=== PATIENT | female | born 1925 | race Caucasian/White ===

== ENCOUNTER 2016-05-23 10:48 | Emergency (ER) | payer MEDICARE, OTHER ==
[~2016-05-23] VITALS: Ht 157.5 cm; Wt 52.9 kg
[~2016-05-23 10:48] MED LIST: LSN5 PO; TIMO0.2534 OPB
[2016-05-23 10:52] VITALS: TEMP 37.2; Ht 157.5 cm; Wt 52.9 kg
[2016-05-23] MEDS ORDERED: IPRATROPIUM BROMIDE NEB SOLN 0.02% 2.5 ML VIAL INH STA (11:08)
[2016-05-23] MEDS ORDERED: LEVALBUTEROL 1.25MG/0.5ML NEB INH STA (11:08)
[2016-05-23] MEDS ORDERED: SODIUM CHLORIDE 0.9% 1000ML 500 ML IV STA (11:08)
[2016-05-23 11:24] VITALS: O2SAT 94
[2016-05-23 11:30] VITALS: PULSE 84; O2SAT 96
[2016-05-23 11:50] LABS: BASO % 0.1 %; BASO ABS # 0.01 K/uL (0-0.2); COMPLETE YES; EOS % 0.1 %; IG% 0.3 %; LYMPH % 5.6 %; LYMPH ABS # 0.56 K/uL (1.2-3.4); MEAN CELL VOLUME 89.5 fL (80-100); MEAN CORPUSCULAR HGB CONC 33.5 g/dl (32-36); MEAN PLATELET VOLUME 8.1 fL (7.4-10.4); MONO % 4.6 %; NEUT % 89.3 %; PLATELET COUNT 340 K/uL (130-400); RED BLOOD COUNT 4.47 M/uL (4.2-5.4); WHITE BLOOD COUNT 9.98 K/uL (4.8-10.8)
[2016-05-23] MEDS ORDERED: GUAISYP4 PO (11:53)
[2016-05-23] MEDS ORDERED: AZIT250T PO (11:53)
[2016-05-23] MEDS ORDERED: PRED10TA PO (11:54)
[2016-05-23 12:03] LABS: BLOOD UREA NITROGEN 17 mg/dl (7-18); BUN/CREATININE RATIO 25.1 (10-20); CALCIUM 8.9 mg/dl (8.5-10.1); CARBON DIOXIDE 26 mmol/L (21-32); CHLORIDE 103 mmol/L (98-107); CREATININE 0.69 mg/dl (0.60-1.20); GLUCOSE 127 mg/dl (70-99); POTASSIUM 4.2 mmol/L (3.5-5.1); SODIUM 138 mmol/L (136-145)
[2016-05-23 12:06] LABS: PARTIAL THROMBOPLASTIN RATIO 1.1; PROTHROMBIN TIME (PATIENT) 10.9 SECONDS (9.0-12.0)
--- NOTE | 2016-05-23 12:29 | DIAGNOSTIC IMAGING REPORT ---
CHEST ONE VIEW PORTABLE CLINICAL HISTORY: EVALUATE RESPIRATORY DISTRESS. DYSPNEA dyspnea COMPARISON STUDY: 03/04/2016 FINDINGS: Mild stable cardiomegaly. Slight generalized prominence of the bronchovascular markings bilaterally. Plate like atelectasis both lung bases. Slight blunting lateral calcific angles bilaterally. IMPRESSION: Bronchitis. Mild stable cardiomegaly. Electronically signed by: Nate Christian M.D. 05/23/2016 12:28 PM Dictated Date/Time: 05/23/2016 12:27 PM
[2016-05-23] MEDS ORDERED: ALBUTEROL HFA 8 GM INHALER INH ONE (13:00)
[2016-05-23 13:24] LABS: INFLUENZA A PCR Neg for Influ A (NEG); INFLUENZA B PCR Neg for Influ B (NEG)
[2016-05-23 14:34] VITALS: BP 137/82; PULSE 82; O2SAT 96
--- NOTE | 2016-05-23 15:19 | EMERGENCY ROOM VISIT NOTE ---
History Report prepared by Jake: Jyothi Holder Under the Supervision of: Dr. Mark Ruiz M.D. First contact with patient: 11:07 Chief Complaint: RESPIRATORY PROBLEMS Stated Complaint: BRONCHITIS Nursing Triage Summary: Pt reports dx with bronchitis on Monday Pt reports she is not getting any better History of Present Illness The patient is a 89 year old female who presents to the Emergency Room with complaints of a worsening cough which started last week. The cough is productive at times. She visited the doctor on Monday and was found to have bronchitis. She was placed on guaifenesin, Zithromax, and a prednisone taper. She expected to get better, but got worse, prompting her to present to the ED. She does not have a fever. She does not have any inhalers or a nebulizer. The patient lives alone and her [id number] reports that she is not sure if her food and fluid intake has been adequate lately. She has no history of COPD, emphysema, or asthma. She has received her flu shot. Source of History: patient Onset: last week Position: other (global) Quality: other (cough) Timing: worsening Associated Symptoms: No fevers Review of Systems See HPI for pertinent positives & negatives. A total of 10 systems reviewed and were otherwise negative. 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 Family History Asthma Cancer Heart disease Lung disease Social History Smoking Status: Never Smoker Alcohol Use: none Drug Use: none Marital Status: Housing Status: lives with family Occupation Status: retired Current/Historical Medications Scheduled Aspirin (Aspirin Ec), 81 MG PO DAILY Azithromycin (Zithromax), 250 MG PO DAILY Lisinopril (Lisinopril), 5 MG PO DAILY Scheduled PRN Guaifenesin/Codeine (Robitussin-Ac Syrup), 5 ML PO Q6H PRN for Cough Miscellaneous Medications Prednisone Tab (Prednisone), 10 MG PO Allergies Coded Allergies: Iodinated Contrast Media (Verified Allergy, Unknown, itching, 05/23/16) Oxycodone (Verified Adverse Reaction, Unknown, NAUSEA, VOMITING, 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 HEENT: No acute trauma, normocephalic atraumatic, mucous membranes moist, no nasal congestion, no scleral icterus. NECK: No stridor, no adenopathy, no meningismus, trachea is midline. LUNGS: Diminished breath sound bilaterally, equal bilaterally. Wheezing noted bilaterally. Dry cough noted. HEART: Slightly tachycardic, with a 2/6 systolic murmur and a regular rhythm. ABDOMEN: Soft, nontender, bowel sounds positive, no hernias, no peritonitis. EXTREMITIES: No cyanosis or edema, full range of motion of all the joints without pain or difficulty, no signs for acute trauma. NEUROLOGIC: Oriented x 3, no acute motor or sensory deficits, no focal weakness. SKIN: No rash, no jaundice, no diaphoresis. Medical Decision & Procedures ER Provider Diagnostic Interpretation: X-ray results as stated below per interpretation by me and the radiologist: CHEST ONE VIEW PORTABLE CLINICAL HISTORY: EVALUATE RESPIRATORY DISTRESS. DYSPNEA dyspnea COMPARISON STUDY: 03/04/2016 FINDINGS: Mild stable cardiomegaly. Slight generalized prominence of the bronchovascular markings bilaterally. Plate like atelectasis both lung bases. Slight blunting lateral calcific angles bilaterally. IMPRESSION: Bronchitis. Mild stable cardiomegaly. Electronically signed by: Nate Christian M.D. 05/23/2016 12:28 PM Dictated Date/Time: 05/23/2016 12:27 PM Laboratory Results 05/23/16 11:25 Red Blood Count 4.47, Mean Corpuscular Volume 89.5, Mean Corpuscular Hemoglobin 30.0, Mean Corpuscular Hemoglobin Concent 33.5, Mean Platelet Volume 8.1, Neutrophils (%) (Auto) 89.3, Lymphocytes (%) (Auto) 5.6, Monocytes (%) (Auto) 4.6, Eosinophils (%) (Auto) 0.1, Basophils (%) (Auto) 0.1, Neutrophils # (Auto) 8.91, Lymphocytes # (Auto) 0.56, Monocytes # (Auto) 0.46, Eosinophils # (Auto) 0.01, Basophils # (Auto) 0.01 05/23/16 11:25 Test 05/23/16 00:00 05/23/16 11:25 Influenza Type A (RT-PCR) Neg for Influ A (NEG) Influenza Type B (RT-PCR) Neg for Influ B (NEG) White Blood Count 9.98 K/uL (4.8-10.8) Red Blood Count 4.47 M/uL (4.2-5.4) Hemoglobin 13.4 g/dL (12.0-16.0) Hematocrit 40.0 % (37-47) Mean Corpuscular Volume 89.5 fL (80-100) Mean Corpuscular Hemoglobin 30.0 pg (25-34) Mean Corpuscular Hemoglobin Concent 33.5 g/dl (32-36) Platelet Count 340 K/uL (130-400) Mean Platelet Volume 8.1 fL (7.4-10.4) Neutrophils (%) (Auto) 89.3 % Lymphocytes (%) (Auto) 5.6 % Monocytes (%) (Auto) 4.6 % Eosinophils (%) (Auto) 0.1 % Basophils (%) (Auto) 0.1 % Neutrophils # (Auto) 8.91 K/uL (1.4-6.5) Lymphocytes # (Auto) 0.56 K/uL (1.2-3.4) Monocytes # (Auto) 0.46 K/uL (0.11-0.59) Eosinophils # (Auto) 0.01 K/uL (0-0.5) Basophils # (Auto) 0.01 K/uL (0-0.2) RDW Standard Deviation 47.0 fL (36.4-46.3) RDW Coefficient of Variation 14.3 % (11.5-14.5) Immature Granulocyte % (Auto) 0.3 % Immature Granulocyte # (Auto) 0.03 K/uL (0.00-0.02) Prothrombin Time 10.9 SECONDS (9.0-12.0) Prothromb Time International Ratio 1.0 (0.9-1.1) Activated Partial Thromboplast Time 28.1 SECONDS (21.0-31.0) Partial Thromboplastin Ratio 1.1 Anion Gap 9.0 mmol/L (3-11) Est Creatinine Clear Calc Drug Dose 43.7 ml/min Estimated GFR () 89.5 Estimated GFR (Non- 77.2 BUN/Creatinine Ratio 25.1 (10-20) Calcium Level 8.9 mg/dl (8.5-10.1) Troponin I < 0.015 ng/ml (0-0.045) Laboratory results reviewed by me. Medications Administered Medications (Trade) Dose Ordered Sig/Sylvia Route Start Time Stop Time Status Last Admin Dose Admin Sodium Chloride (Nss 1000ml) 500 ml @ 999 mls/hr Q31M STAT IV 05/23/16 11:08 05/23/16 11:38 DC 05/23/16 11:21 999 MLS/HR Levalbuterol (Xopenex 1.25MG/ 0.5ML Neb) 1.25 mg NOW STAT INH 05/23/16 11:08 05/23/16 11:13 DC 05/23/16 11:21 1.25 MG Ipratropium [place] (Atrovent 0.02% 0.5MG/2.5ML Neb) 0.5 mg NOW STAT INH 05/23/16 11:08 05/23/16 11:13 DC 05/23/16 11:21 0.5 MG Albuterol (Ventolin Hfa Inhaler) 2 puffs NOW ONCE INH 05/23/16 13:00 05/23/16 13:01 DC 05/23/16 13:04 2 PUFFS ECG Indication: other (cough) Rate (beats per minute): 82 Rhythm: normal sinus Findings: RBBB, no ectopy, other (no obvious ischemia) Comparison ECG Date: 03-04-16 Change: no significant change ED Course 1108: The patient was evaluated in room C5. A complete history and physical exam was performed. Ipratropium [place] 0.5 mg INH, Levalbuterol 1.25 mg INH, NSS 500 ml @ 999 mls/hr IV. 1300: Albuterol 2 puffs INH. 1301: I reevaluated the patient. She is resting comfortably. I updated the patient on the results. 1411: I reevaluated the patient. She is doing well. I discussed the results and treatment plan with the patient and her family. They expressed understanding and agreement. She will be discharged home. Medical Decision Differential diagnoses: bronchitis, pneumonia, CHF, influenza, dehydration, electrolyte imbalance, cardiac ischemia. There is no leukocytosis or concerning anemia. No significant electrolyte abnormality or kidney failure. EKG shows a sinus rhythm, no acute ischemia. Cardiac enzyme testing 1 is not consistent with acute cardiac injury. Chest x- ray shows a bronchitis picture, no pneumonia, CHF or pneumothorax. Influenza testing was negative. On exam, the patient was not hypoxic or toxic. Patient received a Xopenex Atrovent neb, IV saline. She was given albuterol via MDI. The patient does appear to have an acute bronchitis. She will continue the Zithromax and prednisone and cough syrup. I will add albuterol for bronchospasm. She can follow with her doctors office and return here for worsening symptoms. Impression Primary Impression: Acute bronchitis Additional Impression: Cough Scribe Attestation The scribe's documentation has been prepared under my direction and personally reviewed by me in its entirety. I confirm that the note above accurately reflects all work, treatment, procedures, and medical decision making performed by me. Departure Information Dispostion Home / Self-Care Referrals Manas Christine M.D. Forms HOME CARE DOCUMENTATION FORM, IMPORTANT VISIT INFORMATION Patient Instructions My [facility] Additional Instructions continue the prednisone, cough meds, and zithromax start albuterol 3 puffs every 4-6 hours see miguel campbell this week return for worsening symptoms, fever or worsening breathing Problem Qualifiers
[2016-10-21] MEDS ORDERED: ASPI81TA28 PO (11:25)
== END 2016-05-23 14:36 | disposition home or self-care (01) ==
LOC: C.EDB 10:51 → C.EDC 14:36
DX: J20.9 Acute bronchitis, unspecified (principal); I45.10 Unspecified right bundle-branch block; M35.00 Sjogren syndrome, unspecified; Z86.73 Personal history of transient ischemic attack (TIA), and cerebral infarction without residual deficits; Z79.82 Long term (current) use of aspirin; Z79.899 Other long term (current) drug therapy; Z88.5 Allergy status to narcotic agent; Z91.041 Radiographic dye allergy status; Z80.9 Family history of malignant neoplasm, unspecified; Z82.49 Family history of ischemic heart disease and other diseases of the circulatory system

== ENCOUNTER → 2016-06-02 | Outpatient (CLI) | payer MEDICARE ==
[~2016-06-02] MED LIST changes: +ALBUAER INJ; +AMOX875T PO; +ASPI81TA28 PO; +AZIT250T PO; +CHOL1000 PO; +CZR25 PO; +GUAISYP4 PO; +PRED10TA PO; -TIMO0.2534 OPB
[2016-06-02 17:31] LABS: BASO % 0.3 %; BASO ABS # 0.03 K/uL (0-0.2); COMPLETE YES; IG% 0.4 %; LYMPH % 8.3 %; LYMPH ABS # 0.86 K/uL (1.2-3.4); MEAN CELL VOLUME 91.7 fL (80-100); MEAN CORPUSCULAR HEMOGLOBIN 30.7 pg (25-34); MEAN CORPUSCULAR HGB CONC 33.5 g/dl (32-36); MEAN PLATELET VOLUME 8.2 fL (7.4-10.4); MONO % 9.7 %; NEUT % 80.3 %; PLATELET COUNT 413 K/uL (130-400); RED BLOOD COUNT 4.36 M/uL (4.2-5.4); WHITE BLOOD COUNT 10.34 K/uL (4.8-10.8)
[2016-06-02 17:49] LABS: ALT/SGPT 24 U/L (12-78); BLOOD UREA NITROGEN 17 mg/dl (7-18); CALCIUM 8.9 mg/dl (8.5-10.1); CARBON DIOXIDE 30 mmol/L (21-32); CHLORIDE 100 mmol/L (98-107); CREATININE 0.66 mg/dl (0.60-1.20); GLUCOSE 114 mg/dl (70-99); POTASSIUM 4.3 mmol/L (3.5-5.1); SODIUM 137 mmol/L (136-145)
[2016-06-02 17:52] LABS: ALKALINE PHOSPHATASE 70 U/L (45-117); AST/SGOT 17 U/L (15-37)
--- NOTE | 2016-06-07 05:34 | CODING QUERY MEDICAL NECESSITY ---
SUPPORTING DIAGNOSIS NEEDED A supporting diagnosis is required for the test/procedure performed on this patient in order for us to be reimbursed by the patient's insurance. Please provide a supporting diagnosis for the following test/procedure listed below next to the test name along with your signature. *If there is no additional diagnosis for this patient that would support the following test/procedure please document that below next to the test/procedure. Test(s)/Procedure(s) that require a supporting diagnosis: DOS 06/02 * Vitamin D DIAGNOSIS: Provider Signature: Date: Thank you Rosalinda Rodrigues Health Information Management Once completed, please kindly fax back to [phone] For questions please call [phone]
== END | disposition home or self-care (01) ==
LOC: C.LABPVFM 15:59
PROVIDERS: ATTEND Nurse Practitioner
DX: C18.9 Malignant neoplasm of colon, unspecified (principal); R41.3 Other amnesia; I10 Essential (primary) hypertension; E55.9 Vitamin D deficiency, unspecified

== ENCOUNTER 2016-08-26 22:28 | Emergency (ER) | payer MEDICARE ==
[~2016-08-26] VITALS: Ht 157.5 cm; Wt 56.2 kg
[~2016-08-26 22:28] MED LIST changes: -ALBUAER INJ; -AMOX875T PO; -ASPI81TA28 PO; -CHOL1000 PO; -CZR25 PO
[2016-08-26 22:33] VITALS: PULSE 93; TEMP 36.8; O2SAT 92; Ht 157.5 cm; Wt 56.2 kg
--- NOTE | 2016-08-26 22:50 | EMERGENCY ROOM VISIT NOTE ---
ED Visit Note First contact with patient: 22:36 Staff note: I have reviewed the Patients chart and have discussed this case with my PA. I generally agree with the ED note and findings.
--- NOTE | 2016-08-26 22:54 | EMERGENCY ROOM VISIT NOTE ---
ED Visit Note First contact with patient: 22:36 CHIEF COMPLAINT: Foreign body in left ear HISTORY OF PRESENT ILLNESS: This 89-year-old female presents the ER with chief complaint that she thinks she has the tip of the Q-tip in her left ear. The patient states that she cleaned her ears earlier this evening and since that time she cannot hear out of the left ear. REVIEW OF SYSTEMS: 6 system review was performed and was negative unless stated otherwise in history of present illness. PMH: The patient is healthy; hypertension, colon cancer, hip replacement SOCIAL HISTORY: Patient lives alone. The patient denies any tobacco or alcohol use. PHYSICAL EXAM: Vital Signs: Were reviewed Reviewed Nurse's notes. GENERAL: 89- year-old female patient appears in no acute distress. MENTAL STATUS: Alert and oriented 3. LEFT EAR: Cotton tip of the Q-tip is visualized deep within the ear canal. EMERGENCY DEPARTMENT COURSE: The patient was evaluated. The patient's EMR and medication list was reviewed. Using gentle curetting and a forceps the foreign body was removed. Exam of the ear afterwards shows that there were no lacerations on the canal and no hemorrhage in the tympanic membrane which was intact and appeared normal. The patient was independently evaluated by Dr. Shaw who agreed with treatment plan. The patient was informed that her blood pressure was elevated at today's ER visit and that she will require a blood pressure follow-up at her family doctor. The patient verbalized understanding. The patient was discharged home in stable condition DIAGNOSIS: Foreign body in the left ear canal DISCHARGE INSTRUCTIONS: Do not stick the Q-tip deep within the ear canal. Your blood pressure was elevated at today's ER visit. Follow-up with your family physician on Monday or Monday for blood pressure recheck. Current/Historical Medications Scheduled Aspirin (Aspirin Ec), 81 MG PO DAILY Azithromycin (Zithromax), 250 MG PO DAILY Lisinopril (Lisinopril), 5 MG PO DAILY Scheduled PRN Guaifenesin/Codeine (Robitussin-Ac Syrup), 5 ML PO Q6H PRN for Cough Miscellaneous Medications Prednisone Tab (Prednisone), 10 MG PO Allergies Coded Allergies: Iodinated Contrast Media (Verified Allergy, Unknown, itching, 05/23/16) Oxycodone (Verified Adverse Reaction, Unknown, NAUSEA, VOMITING, PT. STATES SHE GOES CRAZY, 05/23/16) Vital Signs Date Time Temp Pulse Resp B/P (MAP) Pulse Ox O2 Delivery O2 Flow Rate FiO2 08/26/16 22:33 36.8 93 18 155/89 92 Room Air Departure Information Referrals Manas Christine M.D. (PCP) Patient Instructions [facility]
[2016-08-26 23:27] VITALS: BP 141/80
[2016-10-21] MEDS ORDERED: ASPI81TA28 PO (11:25)
== END 2016-08-26 23:28 | disposition home or self-care (01) ==
LOC: C.EDB 22:30 → C.EDC 23:28
DX: T16.2XXA Foreign body in left ear, initial encounter (principal); X58.XXXA Exposure to other specified factors, initial encounter; Y93.E8 Activity, other personal hygiene; I10 Essential (primary) hypertension; Z85.038 Personal history of other malignant neoplasm of large intestine; Z96.649 Presence of unspecified artificial hip joint; Z79.82 Long term (current) use of aspirin

== ENCOUNTER → 2016-09-12 | Outpatient (CLI) | payer MEDICARE ==
[~2016-09-12] MED LIST changes: +ALBUAER INJ; +AMOX875T PO; +ASPI81TA28 PO; -AZIT250T PO; +CHOL1000 PO; +CZR25 PO; -GUAISYP4 PO; -LSN5 PO; -PRED10TA PO
== END | disposition home or self-care (01) ==
LOC: C.LABPVFM 09:41
PROVIDERS: ATTEND Nurse Practitioner
DX: E55.9 Vitamin D deficiency, unspecified (principal)

== ENCOUNTER 2016-10-21 18:46 | Observation (INO) | payer MEDICARE ==
[~2016-10-21] VITALS: Ht 157.5 cm; Wt 56.4 kg
[~2016-10-21 18:46] MED LIST changes: -ALBUAER INJ; -AMOX875T PO; -CHOL1000 PO; -CZR25 PO
[2016-10-21] MEDS ORDERED: ALBUT/IPRATROP 3MG/0.5MG NEB 3 ML VIAL INH STA (19:18)
--- NOTE | 2016-10-21 19:40 | DIAGNOSTIC IMAGING REPORT ---
CHEST ONE VIEW PORTABLE HISTORY: Atypical CHEST PAIN COMPARISON: Chest 05/23/2016. FINDINGS: The cardiac silhouette remains mildly enlarged. No pleural effusions. No pneumothorax. Diffuse interstitial thickening, unchanged. Bibasilar linear densities favor subsegmental atelectasis. This is also not significantly changed. No new focal lung consolidations. IMPRESSION: Stable cardiomegaly and diffuse interstitial thickening. This is likely chronic. However, mild congestive change could also have a similar appearance. Electronically signed by: Luiz Snell M.D. 10/21/2016 7:39 PM Dictated Date/Time: 10/21/2016 7:37 PM
[2016-10-21 20:12] LABS: POINT OF CARE PRO-BNP 580 pg/ml (0-1800); POINT OF CARE TROPONIN I < 0.030 ng/ml (0-0.045)
[2016-10-21] MEDS ORDERED: CHOL1000 PO (20:14)
[2016-10-21] MEDS ORDERED: ALBUAER INJ (20:14)
[2016-10-21 20:20] LABS: BLOOD UREA NITROGEN 12 mg/dl (7-18); BUN/CREATININE RATIO 17.3 (10-20); CALCIUM 8.8 mg/dl (8.5-10.1); CARBON DIOXIDE 27 mmol/L (21-32); CHLORIDE 106 mmol/L (98-107); CREATININE 0.72 mg/dl (0.60-1.20); GLUCOSE 112 mg/dl (70-99); POTASSIUM 3.9 mmol/L (3.5-5.1); SODIUM 138 mmol/L (136-145)
[2016-10-21 20:23] LABS: ALKALINE PHOSPHATASE 85 U/L (45-117); ALT/SGPT 29 U/L (12-78); AST/SGOT 25 U/L (15-37)
[2016-10-21 20:29] LABS: HEMATOCRIT 39.2 % (37-47); MEAN CELL VOLUME 87.1 fL (80-100); MEAN CORPUSCULAR HEMOGLOBIN 29.6 pg (25-34); MEAN CORPUSCULAR HGB CONC 33.9 g/dl (32-36); MEAN PLATELET VOLUME 10.6 fL (7.4-10.4); PLATELET COUNT 41 K/uL (130-400); WHITE BLOOD COUNT 3.91 K/uL (4.8-10.8)
[2016-10-21 20:54] LABS: BASO % 1.3 %; BASO ABS # 0.05 K/uL (0-0.2); COMPLETE YES; EOS % 2.6 %; IG% 0.8 %; LYMPH ABS # 0.51 K/uL (1.2-3.4); MONO % 26.1 %; NEUT % 56.2 %; PLT ESTIMATE DECREASED
[2016-10-21] MEDS ORDERED: AMOX875T PO (22:11)
[2016-10-21] MEDS ORDERED: AMOXICIL/CLAVU 875MG HOME PACK PO ONE (22:15)
[2016-10-21 23:06] LABS: HEMATOCRIT 39.9 % (37-47); MEAN CELL VOLUME 86.7 fL (80-100); MEAN CORPUSCULAR HEMOGLOBIN 28.7 pg (25-34); MEAN CORPUSCULAR HGB CONC 33.1 g/dl (32-36); WHITE BLOOD COUNT 3.99 K/uL (4.8-10.8)
[2016-10-21] MEDS ORDERED: CZR25 PO (23:13)
[2016-10-21 23:29] LABS: PLATELET COUNT 42 K/uL (130-400)
--- NOTE | 2016-10-22 00:05 | EMERGENCY ROOM VISIT NOTE ---
History Report prepared by Jake: Jyothi Holder Under the Supervision of: Dr. Jovon Jessica M.D. First contact with patient: 19:06 Chief Complaint: RESPIRATORY PROBLEMS Stated Complaint: TROUBLE BREATHING Nursing Triage Summary: Patient presents ambulatory to ED for evaluation. Patient states, "I can't breath." Denies any pain. + cough noted. History of Present Illness The patient is an 89 year old female who presents to the Emergency Room with complaints of worsening SOB over the past 2-3 weeks. Her SOB usually improves through the day, but today she has had no relief at all. She has a nebulizer at home, but has not been using it. She is normally not on oxygen. She has had a productive cough which brings up a thick mucous. She denies any chest pain, black or bloody stools, nausea, vomiting, or diarrhea. Her abdomen size is normal. She normally has more swelling in her left leg. She is not on blood thinners. She denies any history of smoking. She has a history of Sjoegren syndrome and complains of dry mouth. Source of History: patient, family Onset: 2-3 weeks Position: other (global) Quality: other (SOB) Timing: worsening Associated Symptoms: + cough, No chest pain, No nausea, No vomiting, No melena, No hematochezia, No diarrhea Review of Systems See HPI for pertinent positives & negatives. A total of 10 systems reviewed and were otherwise negative. 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 Nurse's notes were reviewed and I agree with. No history of problems with her platelets Family History Asthma Cancer Heart disease Lung disease Social History Smoking Status: Never Smoker Alcohol Use: none Drug Use: none Marital Status: Housing Status: lives with family Occupation Status: retired Current/Historical Medications Scheduled Amoxicillin & Pot Clavulanate (Augmentin 875-125 mg), 1 TAB PO BID Aspirin (Aspirin Ec), 81 MG PO DAILY Cholecalciferol (Vitamin D3), 5 TAB PO DAILY Losartan Potassium (Losartan Potassium), 25 MG PO DAILY Scheduled PRN Albuterol Sulfate (Proventil Hfa), 2 PUFF INJ QID PRN for SOB/Wheezing Allergies Coded Allergies: Iodinated Contrast Media (Verified Allergy, Unknown, itching, 08/26/16) Oxycodone (Verified Adverse Reaction, Unknown, NAUSEA, VOMITING, 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 Mildly hard of hearing, but answers all questions appropriately. HEENT: Normal cephalic atraumatic. Pupils are equal round and reactive to light. Extraocular movements are intact. Oropharynx is pink with moist mucous membranes. No swelling of the mouth lips or tongue. Neck: Supple with a midline trachea. No meningeal signs or stiffness, no JVD or bruits. No Stridor. Chest: Clear to auscultation bilaterally. No wheezes or rhonchi. No increased work of breathing. Heart: regular rate and rhythm. Abdomen: Soft nontender, nondistended without rebound guarding or rigidity. Extremities: Trace pedal edema bilaterally, left leg slightly greater than the right which she says is chronic. Spine/Back. Non tender to palpation. No CVA tenderness Skin: Good turgor without rashes. She does have some petechiae in her central chest from where she was itching. She has an occasional petechiae on her legs Neurologic exam: Cranial nerves two through 12 are intact. Motor and sensation are intact and symmetrical throughout. Medical Decision & Procedures ER Provider Diagnostic Interpretation: X-ray results as stated below per interpretation by me and the radiologist: CHEST ONE VIEW PORTABLE HISTORY: Atypical CHEST PAIN COMPARISON: Chest 05/23/2016. FINDINGS: The cardiac silhouette remains mildly enlarged. No pleural effusions. No pneumothorax. Diffuse interstitial thickening, unchanged. Bibasilar linear densities favor subsegmental atelectasis. This is also not significantly changed. No new focal lung consolidations. IMPRESSION: Stable cardiomegaly and diffuse interstitial thickening. This is likely chronic. However, mild congestive change could also have a similar appearance. Electronically signed by: Luiz Snell M.D. 10/21/2016 7:39 PM Dictated Date/Time: 10/21/2016 7:37 PM Laboratory Results 10/21/16 22:49 Red Blood Count 4.60, Mean Corpuscular Volume 86.7, Mean Corpuscular Hemoglobin 28.7, Mean Corpuscular Hemoglobin Concent 33.1, Mean Platelet Volume 10.0 10/21/16 19:18 Test 10/21/16 19:18 10/21/16 19:54 10/21/16 22:49 Immature Granulocyte % (Auto) 0.8 % White Blood Count 3.91 K/uL (4.8-10.8) 3.99 K/uL (4.8-10.8) Red Blood Count 4.50 M/uL (4.2-5.4) 4.60 M/uL (4.2-5.4) Hemoglobin 13.3 g/dL (12.0-16.0) 13.2 g/dL (12.0-16.0) Hematocrit 39.2 % (37-47) 39.9 % (37-47) Mean Corpuscular Volume 87.1 fL (80-100) 86.7 fL (80-100) Mean Corpuscular Hemoglobin 29.6 pg (25-34) 28.7 pg (25-34) Mean Corpuscular Hemoglobin Concent 33.9 g/dl (32-36) 33.1 g/dl (32-36) Platelet Count 41 K/uL (130-400) 42 K/uL (130-400) Mean Platelet Volume 10.6 fL (7.4-10.4) 10.0 fL (7.4-10.4) Neutrophils (%) (Auto) 56.2 % Lymphocytes (%) (Auto) 13.0 % Monocytes (%) (Auto) 26.1 % Eosinophils (%) (Auto) 2.6 % Basophils (%) (Auto) 1.3 % Neutrophils # (Auto) 2.20 K/uL (1.4-6.5) Lymphocytes # (Auto) 0.51 K/uL (1.2-3.4) Monocytes # (Auto) 1.02 K/uL (0.11-0.59) Eosinophils # (Auto) 0.10 K/uL (0-0.5) Basophils # (Auto) 0.05 K/uL (0-0.2) Immature Granulocyte # (Auto) 0.03 K/uL (0.00-0.02) Platelet Estimate DECREASED Anion Gap 5.0 mmol/L (3-11) Est Creatinine Clear Calc Drug Dose 41.9 ml/min Estimated GFR () 86.1 Estimated GFR (Non- 74.3 BUN/Creatinine Ratio 17.3 (10-20) Calcium Level 8.8 mg/dl (8.5-10.1) Total Bilirubin 0.3 mg/dl (0.2-1) Direct Bilirubin < 0.1 mg/dl (0-0.2) Aspartate Amino Transf (AST/SGOT) 25 U/L (15-37) Alanine Aminotransferase (ALT/SGPT) 29 U/L (12-78) Alkaline Phosphatase 85 U/L (45-117) Total Protein 7.2 gm/dl (6.4-8.2) Albumin 3.3 gm/dl (3.4-5.0) Lipase 316 U/L (73-393) Bedside Troponin I < 0.030 ng/ml (0-0.045) KU-Ral-C-Type Natriuretic Peptide 580 pg/ml (0-1800) RDW Standard Deviation 45.5 fL (36.4-46.3) RDW Coefficient of Variation 14.5 % (11.5-14.5) Laboratory studies as stated above per my review. Medications Administered Medications (Trade) Dose Ordered Sig/Sylvia Route Start Time Stop Time Status Last Admin Dose Admin Albuterol/ Ipratropium (Duoneb) 3 ml NOW STAT INH 10/21/16 19:18 10/21/16 19:20 DC 10/21/16 19:18 3 ML ECG Indication: SOB/dyspnea Rate (beats per minute): 82 Rhythm: normal sinus Findings: PVC, RBBB, no acute ischemic change Comparison ECG Date: 23-May-2016 Change: PVC now present. ED Course 1911: Past medical records reviewed. The patient was evaluated in room C5, and a complete history and physical examination were performed. 1917: Duoneb 3 ml INH. 2125: I reevaluated the patient. She feels better. 2204: Upon reevaluation, the patient is resting comfortably. I discussed the results and treatment plan with the patient and her family. They verbalized agreement of the treatment plan. The patient will be evaluated for further management. 2220: I discussed the patient's case with SUKHJINDER Kenny hospitalist. The patient will be evaluated for further management. Medical Decision Differentials include, but are not limited to; bronchitis, pneumonia, CHF, pneumothorax, ACS, arrhythmia. This patient comes in as described above she's had a cough and URI type symptoms as well as some shortness of breath she looks well on exam she has no increased work of breathing she's not hypoxemic. EKG was obtained and does not show any findings to suggest acute coronary syndrome or arrhythmia. Chest x- ray does not show any definite acute abnormalities. She has no acute electrolyte or metabolic abnormality. Surprisingly, her platelet this came back low at 41,000. She has no history of thrombocytopenia and when it was last checked, it was over 400,000. Her white blood count is also mildly low. It may be more of viral etiology. He think she needs to be admitted for further treatment and evaluation. I have consulted Dr. Dodge and they saw her in the ER. Medication Reconcilliation Current Medication List: was personally reviewed by me Blood Pressure Screening Patient's blood pressure: Elevated blood pressure Blood pressure disposition: Elevated BP felt to be situational Consults Time Called: 2216 Consulting Physician: SUKHJINDER Kenny hospitalist Returned Call: 2220 I discussed the patient's case with SUKHJINDER Kenny hospitalist. The patient will be evaluated for further management. Impression Primary Impression: SOB (shortness of breath) Additional Impressions: Thrombocytopenia Bronchitis Scribe Attestation The scribe's documentation has been prepared under my direction and personally reviewed by me in its entirety. I confirm that the note above accurately reflects all work, treatment, procedures, and medical decision making performed by me. Departure Information Dispostion Being Evaluated By Hospitalist Prescriptions Amoxicillin & Pot Clavulanate (Augmentin 875-125 mg) 1 Tab Tab 1 TAB PO BID, #14 TAB Prov: Jovon Jessica M.D. 10/21/16 Referrals Manas Christine M.D. (PCP) Patient Instructions My [facility] Problem Qualifiers
[2016-10-22 00:21] LABS: BASO % 1.3 %; BASO ABS # 0.05 K/uL (0-0.2); EOS % 2.5 %; GIANT PLATELETS 2+; IG% 0.5 %; LYMPH % 15.8 %; LYMPH ABS # 0.63 K/uL (1.2-3.4); MONO % 24.6 %; NEUT % 55.3 %; TEAR DROP CELLS 1+
[2016-10-22] MEDS ORDERED: ALUMINUM/MAGNESIUM/SIMETH (MAALOX MAX) 30 ML UDC PO PRN (01:15)
[2016-10-22] MEDS ORDERED: POLYETHYLENE (MIRALAX) 17 GM PACK PO PRN (01:15)
[2016-10-22] MEDS ORDERED: ONDANSETRON INJ 2 MG/ML 2 ML VIAL IV PRN (01:15)
[2016-10-22] MEDS ORDERED: MAGNESIUM HYDROXIDE SUSP 30 ML UDC PO PRN (01:15)
[2016-10-22] MEDS ORDERED: ACETAMINOPHEN 325 MG TAB PO PRN (01:15)
[2016-10-22] MEDS ORDERED: ALBUT/IPRATROP 3MG/0.5MG NEB 3 ML VIAL INH PRN (01:30)
[2016-10-22] MEDS ORDERED: ARTIFICIAL TEARS OP SOLN OP PRN ×2 (01:30)
[2016-10-22] MEDS ORDERED: ALBUTEROL HFA 8 GM INHALER INH PRN (01:30)
--- NOTE | 2016-10-22 01:54 | History and Physical ---
History & Physical Date & Time of Service: Oct 22, 2016 at 01:40 Chief Complaint: Trouble Breathing Primary Care Physician: Manas Christine M.D. History of Present Illness Source: patient, family, hospital records This is a pleasant 89-year-old female, who presented to the ED today with 2-3 weeks of shortness of breath and coughing. He states that her cough is nonproductive, but has been preventing her from sleeping at night. She is also slightly more short of breath with exertion. She denies wheezing. She states that she has not had fevers chills or night sweats. She does state that she's not had much of an appetite in part due to her coughing, but also because of her dry mouth related to her Sjogren's syndrome. The patient was noted to be hemodynamically stable in the emergency department. She did have what appeared to be some congestive changes on the chest x-ray, but is reported to have more of a chronic appearance. Her labs were generally unremarkable, except for the fact that her platelets were reduced at 42. Review of previous platelet counts show that she has been upwards of 200-300. The patient reports no new changes in her medications. She also denies any increase in her tendency to bleed, specifically denying increased nosebleeds, bleeding gums, hematuria, or rectal bleeding. She does states that her Sjogren's is currently very bothersome to her. In the outpatient setting, she states she follows with Dr. Renteria. The patient is currently not on any form of maintenance therapy. Past Medical/Surgical History Sjogren syndrome Hypertension History of colon cancer Hernia repair Carpal tunnel syndrome Cataract surgery Family History Asthma Cancer Heart disease Lung disease Social History Smoking Status: Never Smoker Smokeless Tobacco Use: No Alcohol Use: none Drug Use: none Marital Status: Housing status: lives alone Occupational Status: retired Immunizations History of Influenza Vaccine: Yes History of Tetanus Vaccine?: No History of Pneumococcal: Yes History of Hepatitis B Vaccine: No Multi-Drug Resistant Organisms History of MDRO: No Allergies Coded Allergies: Iodinated Contrast Media (Verified Allergy, Unknown, itching, 08/26/16) Oxycodone (Verified Adverse Reaction, Unknown, NAUSEA, VOMITING, PT. STATES SHE GOES CRAZY, 08/26/16) Home Medications Scheduled Amoxicillin & Pot Clavulanate (Augmentin 875-125 mg), 1 TAB PO BID Aspirin (Aspirin Ec), 81 MG PO DAILY Cholecalciferol (Vitamin D3), 5 TAB PO DAILY Losartan Potassium (Losartan Potassium), 25 MG PO DAILY Scheduled PRN Albuterol Sulfate (Proventil Hfa), 2 PUFF INJ QID PRN for SOB/Wheezing Review of Systems A 10 point review of systems was negative unless stated above. Physical Exam Vital Signs Date Time Temp Pulse Resp B/P (MAP) Pulse Ox O2 Delivery O2 Flow Rate FiO2 10/22/16 01:25 81 20 151/84 97 10/21/16 23:46 85 22 10/21/16 23:16 85 23 159/82 98 Room Air 10/21/16 23:02 88 10/21/16 22:46 92 14 10/21/16 22:16 94 22 10/21/16 21:46 83 24 95 Room Air 10/21/16 21:16 84 20 10/21/16 21:11 165/91 10/21/16 20:46 85 22 96 Room Air 10/21/16 20:16 94 21 98 Room Air 10/21/16 19:46 96 20 95 Room Air 10/21/16 19:37 94 10/21/16 18:57 37.4 96 18 169/93 95 Room Air 10/21/16 18:57 95 Room Air General Appearance: WD/WN, no apparent distress Head: normocephalic, atraumatic Eyes: normal inspection, EOMI, + pertinent finding (periorbital erythema) ENT: hearing grossly normal, pharynx normal, + pertinent finding (adentulous) Neck: supple, no adenopathy, no JVD Respiratory/Chest: lungs clear, no respiratory distress, + pertinent finding ( petechiae apparent on anterior chest) Cardiovascular: regular rate, rhythm, no gallop, no murmur Abdomen/GI: normal bowel sounds, non tender, soft Back: no CVA tenderness, no muscle spasm Extremities/Musculoskelatal: no calf tenderness, no pedal edema Neurologic/Psych: alert, normal mood/affect, oriented x 3 Skin: normal color, warm/dry, no rash Diagnostics Laboratory Results Results Past 24 Hours Test 10/21/16 19:18 10/21/16 19:54 10/21/16 22:49 Range/Units White Blood Count 3.91 3.99 4.8-10.8 K/uL Red Blood Count 4.50 4.60 4.2-5.4 M/uL Hemoglobin 13.3 13.2 12.0-16.0 g/dL Hematocrit 39.2 39.9 37-47 % Mean Corpuscular Volume 87.1 86.7 80-100 fL Mean Corpuscular Hemoglobin 29.6 28.7 25-34 pg Mean Corpuscular Hemoglobin Concent 33.9 33.1 32-36 g/dl Platelet Count 41 42 130-400 K/uL Mean Platelet Volume 10.6 10.0 7.4-10.4 fL Neutrophils (%) (Auto) 56.2 55.3 % Lymphocytes (%) (Auto) 13.0 15.8 % Monocytes (%) (Auto) 26.1 24.6 % Eosinophils (%) (Auto) 2.6 2.5 % Basophils (%) (Auto) 1.3 1.3 % Neutrophils # (Auto) 2.20 2.21 1.4-6.5 K/uL Lymphocytes # (Auto) 0.51 0.63 1.2-3.4 K/uL Monocytes # (Auto) 1.02 0.98 0.11-0.59 K/uL Eosinophils # (Auto) 0.10 0.10 0-0.5 K/uL Basophils # (Auto) 0.05 0.05 0-0.2 K/uL RDW Standard Deviation 46.3 45.5 36.4-46.3 fL RDW Coefficient of Variation 14.4 14.5 11.5-14.5 % Immature Granulocyte % (Auto) 0.8 0.5 % Immature Granulocyte # (Auto) 0.03 0.02 0.00-0.02 K/uL Platelet Estimate DECREASED Sodium Level 138 136-145 mmol/L Potassium Level 3.9 3.5-5.1 mmol/L Chloride Level 106 98-107 mmol/L Carbon Dioxide Level 27 21-32 mmol/L Anion Gap 5.0 3-11 mmol/L Blood Urea Nitrogen 12 7-18 mg/dl Creatinine 0.72 0.60-1.20 mg/dl Est Creatinine Clear Calc Drug Dose 41.9 ml/min Estimated GFR () 86.1 Estimated GFR (Non- 74.3 BUN/Creatinine Ratio 17.3 10-20 Random Glucose 112 70-99 mg/dl Calcium Level 8.8 8.5-10.1 mg/dl Total Bilirubin 0.3 0.2-1 mg/dl Direct Bilirubin < 0.1 0-0.2 mg/dl Aspartate Amino Transf (AST/SGOT) 25 15-37 U/L Alanine Aminotransferase (ALT/SGPT) 29 12-78 U/L Alkaline Phosphatase 85 45-117 U/L Total Protein 7.2 6.4-8.2 gm/dl Albumin 3.3 3.4-5.0 gm/dl Lipase 316 73-393 U/L Bedside Troponin I < 0.030 0-0.045 ng/ml EZ-Dpa-[id number]-Type Natriuretic Peptide 580 0-1800 pg/ml Giant Platelets 2+ Tear Drop Cells 1+ Diagnostic Radiology CHEST ONE VIEW PORTABLE HISTORY: Atypical CHEST PAIN COMPARISON: Chest 05/23/2016. FINDINGS: The cardiac silhouette remains mildly enlarged. No pleural effusions. No pneumothorax. Diffuse interstitial thickening, unchanged. Bibasilar linear densities favor subsegmental atelectasis. This is also not significantly changed. No new focal lung consolidations. IMPRESSION: Stable cardiomegaly and diffuse interstitial thickening. This is likely chronic. However, mild congestive change could also have a similar appearance. Electronically signed by: Luiz Snell M.D. 10/21/2016 7:39 PM Dictated Date/Time: 10/21/2016 7:37 PM Impression Assessment and Plan 89-year-old female with a background history of Sjogren syndrome and hypertension, who presents to the emergency room with features of viral bronchitis, with incidental lab findings consistent with thrombocytopenia. Causes for thrombus cytopenia could be due to bone marrow suppression secondary to viral illness, autoimmune etiology, medication effect or splenic consumption. Fortunately this time there are no signs that the patient is having a bleed secondary to low platelets. Our plan for her is as follows: Acute thrombocytopenia - Platelet count in the 40s, without evidence of bleeding - Peripheral smear is pending - Hold home dose aspirin - Consult hematology - Consult rheumatology Sjogren syndrome - Artificial tears every 15 minutes as needed - The patient has special eyedrops which she will bring in from home tomorrow and these can be used every 2 hours - Sips of water for dry mouth - Given the diagnosis, I would consider an autoimmune etiology for her low platelets Acute bronchitis - Continue albuterol inhaler - Will add duo nebs every 4 when necessary shortness of breath or wheezing - Donnie Mccracken - Eduardoitussin for cough suppression Hypertension - Continue Losartan DVT prophylaxis - SCD - Teds - Hold heparin or LMWH due to low platelets CODE STATUS - Level I full code Disposition - MedSur - OT and PT evaluation and treat; the patient lives independently at home, which will be the goals at discharge Attending Addendum: I have physically seen and examined this patient, have supervised the medical residents activities, and agree with the H&P as noted above with the following exceptions as noted. Patient's main complaints are that of shortness of breath and chest congestion. She also complains of aggravation of her Sjogren's syndrome in particular related to dry mouth and dry eyes. She also reports generalized fatigue and some mild myalgias and arthralgias. The patient denies palpitations, lower extremity swelling, vision change, hearing change, sore throat, fevers, chills, sweats, weight change, nausea, vomiting, abdominal pain, pelvic pain, blood in urine or stool, dysuria, urinary frequency or urgency, lightheadedness, dizziness, headache, memory loss , rash, abnormal bruising or bleeding, imbalance, focal or generalized weakness , numbness or tingling in arms or legs, night sweats, or allergy symptoms. The review of systems is otherwise negative other than for that already noted above, and at least 10 systems have been reviewed. The patient is awake, well-developed and adequately nourished, alert and oriented 3, normocephalic and atraumatic, lying in bed and in no acute distress. HEENT--PERRL, EOMI, bilateral conjunctivae and oropharynx very dry. Neck--supple, no JVD or bruits, thyroid normal, trachea midline, no adenopathy. Heart--normal S1 and S2, no extra beats, no murmurs, rubs or gallops. Lungs--coarse breath sounds bilaterally, no respiratory distress, no accessory muscle use. Abdomen--normal bowel sounds and soft, nontender and nondistended, no hernias or masses, no organomegaly. Extremities--no cyanosis, clubbing or edema. There are good distal pulses b/l. Dermatologic--excoriation of skin involving bilateral upper and lower lids and inner and outer canthi, and oral mucosa, lips and corners of mouth. Neurologic--cranial nerves II through XII grossly intact, motor and sensory examination normal. Rheumatologic--normal range of motion. Psychiatric--normal affect. Assessment and Plan: 1. Sjogren syndrome aggravation/arthralgias/dehydration place on normal saline with KCl 20 mEq at 100 mils per hour. Artificial tears 2 drops in both eyes every 2 hours. Biotene spray every 2 hours while awake oral mucosa. Polysporin ointment applied to corners of mouth at bedtime. 2. Thrombocytopenia--CBC with differential was repeated with confirmation of low platelets, initially 41 with repeat 42. Peripheral smear has been ordered and is pending. Order antiplatelet antibody to assess for possible autoimmune thrombocytopenia in the setting of the autoimmune disease Sjogren's syndrome. Order a CT abdomen and pelvis without contrast to assess for possible splenomegaly. No overt signs of bleeding and no reported history of bleeding or abnormal bruising.Duonebs every 4 hours while awake and every 2 hours when necessary. Consult hematology. 3. Acute bronchitis--continue albuterol inhaler. Have available duonebs to use every 2 hours when necessary. Robitussin when necessary. Level of Care Med/Surg Advanced Directives Existing Advance Directive: No Existing Living Will: Yes Existing Power of Radiographer: Yes Resuscitation Status FULL RESUSCITATION VTE Prophylaxis VTE Risk Assessment Done? Y/N: Yes Risk Level: Moderate Given or contraindicated: SCD's, Contraindicated (low platelets)
[2016-10-22 02:06] VITALS: BP 131/74; PULSE 84; TEMP 37; O2SAT 92; Ht 157.5 cm; Wt 56.4 kg
[2016-10-22 04:00] VITALS: O2SAT 92
[2016-10-22 07:45] LABS: HEMATOCRIT 38.3 % (37-47); MEAN CELL VOLUME 87.2 fL (80-100); MEAN CORPUSCULAR HEMOGLOBIN 28.7 pg (25-34); MEAN CORPUSCULAR HGB CONC 32.9 g/dl (32-36); RED BLOOD COUNT 4.39 M/uL (4.2-5.4); WHITE BLOOD COUNT 3.57 K/uL (4.8-10.8)
[2016-10-22 07:53] LABS: MEAN PLATELET VOLUME 10.6 fL (7.4-10.4); PLATELET COUNT 38 K/uL (130-400)
[2016-10-22] MEDS: BENZONATATE 100MG CAP PO SCH ×4 (07:53→20:21)
[2016-10-22] MEDS: LOSARTAN POTASSIUM 25 MG TAB PO SCH (07:53)
[2016-10-22] MEDS: CHOLECALCIFEROL 1000 INTER.UNIT TAB PO SCH (07:53)
[2016-10-22 07:58] VITALS: BP 132/76; PULSE 89; TEMP 36.5; O2SAT 96
[2016-10-22 08:13] LABS: BASO ABS # 0.07 K/uL (0-0.2); COMPLETE YES; EOS % 3.6 %; IG% 0.3 %; LYMPH % 30.8 %; MONO % 9.8 %; NEUT % 53.5 %
--- NOTE | 2016-10-22 08:16 | Family Medicine Progress Note ---
Progress Note Date of Service Oct 22, 2016. Subjective Pt evaluation today including: conversation w/ patient, conversation w/ family , physical exam, chart review, lab review, review of studies Voiding: no voiding problems Pt resting comfortably in bed with family at bedside. Pt complains of cough but refuses Duonebs. Complains that she can't swallow the Tesselon pearls. Pt denies pain anywhere, and pt's family has questions about assistant terminal manager care of pt's Sjogren's. Discussed with family about asking her rewards consultant, and gave assurance. Pt desires to go home. Constitutional: No fever, No chills Respiratory: + cough, No sputum, No wheezing, No shortness of breath Cardiovascular: No chest pain, No orthopnea, No edema Abdomen: No pain, No nausea, No vomiting, No diarrhea, No constipation Objective Physical Exam General Appearance: WD/WN, no apparent distress Eyes: PERRL, EOMI, + pertinent finding (periorbital erythema) Respiratory/Chest: chest non-tender, lungs clear, normal breath sounds, no respiratory distress, no accessory muscle use Cardiovascular: regular rate, rhythm, no edema, no gallop, no JVD Abdomen: normal bowel sounds, non tender, soft Extremities: normal range of motion, non-tender, normal inspection Neurologic/Psychiatric: alert, normal mood/affect, oriented x 3 Skin: normal color, warm/dry, no rash Assessment and Plan 89F admitted for acute thrombocytopenia in the setting of acute bronchitis Acute thrombocytopenia - Platelets found to be 42 in ED, normal is 200-300s. - Rheum consult: consider prednisone if needed, continue eye drops, biotene sprays, water for dryness, also cough suppressant, will contact Dr Amina Renteria to get f/u this wk - Heme onc consult: peripheral smear unremarkable, suspect that the cytopenias that she currently has are postinfectious. No Hematologic intervention is needed. - Serial CBCs Sjogren syndrome, h/o x 2 years - apparently controlled symptomatically - place on normal saline with KCl 20 mEq at 100 mils per hour. - Artificial tears 2 drops in both eyes every 2 hours. - Biotene spray every 2 hours while awake oral mucosa. - Polysporin ointment applied to corners of mouth at bedtime. Acute bronchitis - CXR shows no PNA, no new changes, stable cardiomegaly - 96 on RA - Duonebs q4 PRN - Tessalon - CT scan with ground glass and nodular density in lung base. Follow Hypertension - cont Losartan DVT prophylaxis - SCD - Teds - Hold heparin or LMWH due to low platelets CODE STATUS - Level I full code Disposition - MedSurg - OT and PT evaluation and treat; the patient lives independently at home, which will be the goals at discharge Continued [facility] stay due to: multiple IV medications needed, home environment unsafe for pt Resident Tracking Resident Involvement: Resident Care Provided Care Provided: Adult Hospital Medicine Reviewed: Pt Seen/Exam by Me History cough still present but slightly better Constitutional: denies: fever Respiratory: negative: short of breath Cardiovascular: denies chest pain Gastrointestinal/Abdominal: negative: abdominal pain General Appearance: no apparent distress Respiratory: no respiratory distress, decreased breath sounds Cardiovascular: regular rate, rhythm Neurologic/Psychiatric: alert, oriented x 3 Assessment/Plan Resident Physician Supervision Note: I was present with Dr. Evans in bedside. I verified the aynez history and physical, reviewed labs and image studies, discussed the case with the resident and agree with the findings and care plan.
[2016-10-22 08:20] LABS: BUN/CREATININE RATIO 17.7 (10-20); CALCIUM 8.6 mg/dl (8.5-10.1); CREATININE 0.65 mg/dl (0.60-1.20); POTASSIUM 3.8 mmol/L (3.5-5.1)
[2016-10-22] MEDS: GUAIFENESIN SUGAR FREE 200 MG/10 ML UDC PO PRN ×2 (10:36→15:55)
--- NOTE | 2016-10-22 11:00 | DIAGNOSTIC IMAGING REPORT ---
ABDOMEN AND PELVIS CT WITHOUT CONTRAST CT DOSE: 243.91 mGy.cm HISTORY: thrombocytopenia TECHNIQUE: Multiaxial CT images of the abdomen and pelvis were performed without contrast. A dose lowering technique was utilized adhering to the principles of ALARA. COMPARISON STUDY: Abdomen and pelvis CT 03/04/2016. FINDINGS: Linear density within the right lower lobe. This favors atelectasis. Mild bibasilar interstitial thickening and patchy groundglass densities. There are 5 subcentimeter nodules within the left lung base which are new from the prior study. These measure up to 7 mm. No pneumoperitoneum. No pneumatosis. Mild motion artifact. Evaluation of the pelvic structures is suboptimal due to the metallic artifact from the left hip prosthesis. No suspicious lytic or blastic osseous lesions. The heart remains mildly enlarged. Mild motion artifact. The unenhanced liver, gallbladder, pancreas, spleen, and adrenal glands are unremarkable. Mild fullness within the bilateral renal collecting systems, unchanged. No renal or ureteral calculi. No lymphadenopathy within the abdomen or pelvis. No pelvic free fluid. The visualized bladder, uterus, and adnexa are unremarkable. Large amount well-formed stool seen throughout the colon rectum. Anastomotic suture material seen within the small and large bowel. Suboptimal evaluation for bowel pathology due to the lack of intravenous and oral contrast. However, there is no definite bowel wall thickening or obstruction. IMPRESSION: 1. Interval development of a few subcentimeter nodules within the left lung base. These favor an infectious process. However, please refer to the chart below for recommended follow-up. The dominant nodule measures 7 mm. 2. Moderate to large amount of well-formed stool seen within the colon and rectum. 3. Mild interstitial thickening and patchy groundglass densities at the lung bases. This could be due to dependent change or mild congestive change. 4. Stable mild cardiomegaly. 5. No bowel wall thickening or obstruction. 6. Stable mild fullness within the renal collecting systems without libertad hydronephrosis. Please refer to below summary of Fleischner criteria recommendations for follow-up of incidental CT nodules (Devonte Garcia, Guidelines for management of small pulmonary nodules detected on CT scans: A statement from the Fleischner Society, Radiology 237: [phone].) SOLID NODULES Solitary nodule size: <6 mm * Low risk patients: no follow-up needed * high risk patients: optional CT at 12 months Solitary nodule size: 6-8 mm * Low risk patients: follow-up at 6-12 months, then consider further follow-up at 18-24 months * high risk patients: initial follow-up CT at 6-12 months and then at 18-24 months if no change Solitary nodule size: >8 mm * either low or high risk patients - consider follow-up CT at 3 months, and/or CT-PET, and/or biopsy Multiple nodules size: <6 mm * Low risk patients: no routine follow-up * high risk patients: optional CT at 12 months Multiple nodules size: 6-8 mm * Low risk patients: follow-up at 3-6 months, then consider further follow-up at 18-24 months * high risk patients: follow-up at 3-6 months, then at 18-24 months if no change Multiple nodules size: >8 mm * Low risk patients: follow-up at 3-6 months, then consider further follow-up at 18-24 months * high risk patients: follow-up at 3-6 months, then at 18-24 months if no change Note: newly detected indeterminate nodule in persons 35 years of age or older. * Low risk patients: minimal or absent history of smoking and/or other known risk factors * high risk patients: history of smoking or of other known risk factors (e.g. first degree relative with lung cancer, or exposure to asbestos, radon, uranium) * if a nodule up to 8 mm is partly solid or is ground glass further follow-up is required after 24 months to exclude possible slow growing adenocarcinoma ([facility]) SUBSOLID NODULES Solitary pure ground-glass nodule * nodule size <6 mm - no CT follow-up required * nodule size >=6 mm - follow-up CT at 6-12 months, then every 2 years until 5 years Solitary part-solid nodule * nodule size <6 mm - no CT follow-up required * nodule size >=6 mm - follow-up CT at 3-6 months. If unchanged, and solid component remains <6 mm, then annual follow-up for 5 years Multiple subsolid nodules * nodule size <6 mm - follow-up CT at 3-6 months, consider further follow-up at 2 and 4 years if stable * nodule size >=6 mm - follow-up CT at 3-6 months, subsequent management based on the most suspicious nodule(s) Electronically signed by: Luiz Snell M.D. 10/22/2016 10:59 AM Dictated Date/Time: 10/22/2016 10:47 AM
--- NOTE | 2016-10-22 11:10 | Rheumatology Consultation ---
Rheumatology Consultation Date of Consultation: Oct 22, 2016. Requesting Physician: Dr Inman Attending Physician: Dr Low Reason for Consultation: Sjogren's, thrombocytopenia History of Present Illness Mrs Castro is a pleasant 89 y/o female with the diagnosis of sjogren's the last few years followed by Dr Amina Renteria who presented to [facility] ED yesterday with 3 weeks of progressive AMOR, cough. she thought she might be coming down with a cold and just was not getting any better. she was hospitalized in May this year for bronchitis. at the time of evaluation yesterday it was noted her total WBC was a little low and her platelet count was low around 40K. she denies any bleeding issues. she was on daily home aspirin. no new medications. she has not had an issue with this before and in May her Platelet count ranged 200-300K. she denies any chest pain, night sweats, fever or chills. she has her chronic dryness that is very bothersome for her. she cannot produce tears or cry if she wanted. she has lost all of her teeth over the last few years and now has dentures. she reports that the dentures do not fit right because of the dryness. she follows with ophthalmology for the dryness and is on eye drops every 2 hrs. she also uses biotene products for her mouth and drinks a lot of water. she reports that Dr Renteria gave her a medication for her sjogren's but it made her feel awful - dizzy, flushed, nauseated. she does not recall the name of the medication though. she is examined today laying in bed, comfortable. her son is with her. He reports he really did not notice much of a difference in his mother over these last few weeks. 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 Her CXR was stable since May 2016. she denies any arthritis issues especially no inflammatory arthritis complaints. she is hoping to go home today. she has not seen Dr Renteria in 1 yr - was supposed to see her last monday but cancelled because she was not feeling well. last year she had a low + DEANDRE and + SSA antibody. other autoimmune testing was normal. several lab studies for her low platelets are pending. she is stable on RA. Past Medical/Surgical History Medical History: cancer - colon (h/o), hypertension, other (sjogren's) Surgical History: orthopedic surgery (carpal tunnel), other (cataract) Family History no family history of autoimmune diseases Social History Smoking Status: Never Smoker History of Alcohol Use: No Drug Use: none Marital Status: Housing Status: lives alone Occupation Status: retired Review of Systems Constitutional: + weight loss (20 lbs in the last few months), No fever, No chills Eyes: + problem reported (dryness) ENT: + dental problems (dentures do not fit anymore), + trouble swallowing ( cannot eat from dryness), + problem reported (dryness) Respiratory: + cough, + dyspnea on exertion Cardiac: No chest pain, No edema Abdomen: No pain, No nausea Musculoskeletal: No joint pain, No muscle pain Heme: No abnormal bleeding/bruising, No clotting problems, No night sweats All Other Systems: Reviewed and Negative Allergies Coded Allergies: Iodinated Contrast Media (Verified Allergy, Unknown, itching, 08/26/16) Oxycodone (Verified Adverse Reaction, Unknown, NAUSEA, VOMITING, PT. STATES SHE GOES CRAZY, 08/26/16) Medications Current Inpatient Medications Medications (Trade) Dose Ordered Sig/Sylvia Route Start Time Stop Time Status Last Admin Dose Admin Acetaminophen (Tylenol Tab) 650 mg Q4H PRN PO 10/22/16 01:15 11/21/16 01:14 Al Hydrox/Mg Hydrox/Simethicone (Maalox Max Susp) 15 ml Q4H PRN PO 10/22/16 01:15 11/21/16 01:14 Magnesium Hydroxide (Milk Of Magnesia Susp) 30 ml Q6H PRN PO 10/22/16 01:15 11/21/16 01:14 Polyethylene (Miralax Powder Packet) 17 gm DAILY PRN PO 10/22/16 01:15 11/21/16 01:14 Ondansetron HCl (Zofran Inj) 4 mg Q6H PRN IV 10/22/16 01:15 11/21/16 01:14 Albuterol (Ventolin Hfa Inhaler) 2 puffs QID PRN INH 10/22/16 01:30 11/21/16 01:29 Losartan Potassium (coZAAR TAB) 25 mg DAILY PO 10/22/16 09:00 11/21/16 08:59 10/22/16 07:53 25 MG Cholecalciferol (Vitamin D Tab) 5,000 inter.unit DAILY PO 10/22/16 09:00 11/21/16 08:59 10/22/16 07:53 5,000 INTER.UNIT Albuterol/ Ipratropium (Duoneb) 3 ml Q4R PRN INH 10/22/16 01:30 11/21/16 01:29 Artificial Tears (Artificial Tears) 2 drops Q15M PRN OP 10/22/16 01:30 11/21/16 01:29 Guaifenesin (Robitussin Sugar Free Syrup) 200 mg Q6H PRN PO 10/22/16 02:00 11/21/16 01:59 Benzonatate (Tessalon Perles Cap) 100 mg TID PO 10/22/16 09:00 11/21/16 08:59 Physical Exam Date Time Temp Pulse Resp B/P (MAP) Pulse Ox O2 Delivery O2 Flow Rate FiO2 10/22/16 08:00 Room Air 10/22/16 07:58 36.5 89 18 132/76 (94) 96 Room Air 10/22/16 04:00 92 Room Air 10/22/16 02:06 37.0 84 16 131/74 92 Room Air 10/22/16 01:25 81 20 151/84 97 10/21/16 23:46 85 22 10/21/16 23:16 85 23 159/82 98 Room Air 10/21/16 23:02 88 10/21/16 22:46 92 14 10/21/16 22:16 94 22 10/21/16 21:46 83 24 95 Room Air 10/21/16 21:16 84 20 10/21/16 21:11 165/91 10/21/16 20:46 85 22 96 Room Air 10/21/16 20:16 94 21 98 Room Air 10/21/16 19:46 96 20 95 Room Air 10/21/16 19:37 94 10/21/16 18:57 37.4 96 18 169/93 95 Room Air 10/21/16 18:57 95 Room Air General Appearance: WD/WN, no apparent distress Eyes: bilateral eyes normal inspection, bilateral eyes EOMI ENT: + pertinent finding (edentulous with dry oral mucosa noted. no ulcers) Neck: supple, no adenopathy Respiratory: chest non-tender, lungs clear (in upper lung tolbert), + pertinent finding (mild coarseness to breath sounds at the bases) Cardiovascular: regular rate, rhythm, no edema, no murmur Abdomen: normal bowel sounds, non tender, soft Musculoskeletal: bunion right foot no synovitis or dactylitis Skin: normal color, warm/dry, no rash Laboratory Results Last 24 Hours Test 10/21/16 19:18 10/21/16 19:54 10/21/16 22:49 10/22/16 07:12 White Blood Count 3.91 K/uL 3.99 K/uL 3.57 K/uL Red Blood Count 4.50 M/uL 4.60 M/uL 4.39 M/uL Hemoglobin 13.3 g/dL 13.2 g/dL 12.6 g/dL Hematocrit 39.2 % 39.9 % 38.3 % Mean Corpuscular Volume 87.1 fL 86.7 fL 87.2 fL Mean Corpuscular Hemoglobin 29.6 pg 28.7 pg 28.7 pg Mean Corpuscular Hemoglobin Concent 33.9 g/dl 33.1 g/dl 32.9 g/dl Platelet Count 41 K/uL 42 K/uL 38 K/uL Mean Platelet Volume 10.6 fL 10.0 fL 10.6 fL Neutrophils (%) (Auto) 56.2 % 55.3 % 53.5 % Lymphocytes (%) (Auto) 13.0 % 15.8 % 30.8 % Monocytes (%) (Auto) 26.1 % 24.6 % 9.8 % Eosinophils (%) (Auto) 2.6 % 2.5 % 3.6 % Basophils (%) (Auto) 1.3 % 1.3 % 2.0 % Neutrophils # (Auto) 2.20 K/uL 2.21 K/uL 1.91 K/uL Lymphocytes # (Auto) 0.51 K/uL 0.63 K/uL 1.10 K/uL Monocytes # (Auto) 1.02 K/uL 0.98 K/uL 0.35 K/uL Eosinophils # (Auto) 0.10 K/uL 0.10 K/uL 0.13 K/uL Basophils # (Auto) 0.05 K/uL 0.05 K/uL 0.07 K/uL RDW Standard Deviation 46.3 fL 45.5 fL 46.0 fL RDW Coefficient of Variation 14.4 % 14.5 % 14.4 % Immature Granulocyte % (Auto) 0.8 % 0.5 % 0.3 % Immature Granulocyte # (Auto) 0.03 K/uL 0.02 K/uL 0.01 K/uL Platelet Estimate DECREASED Sodium Level 138 mmol/L 141 mmol/L Potassium Level 3.9 mmol/L 3.8 mmol/L Chloride Level 106 mmol/L 108 mmol/L Carbon Dioxide Level 27 mmol/L 28 mmol/L Anion Gap 5.0 mmol/L 5.0 mmol/L Blood Urea Nitrogen 12 mg/dl 12 mg/dl Creatinine 0.72 mg/dl 0.65 mg/dl Est Creatinine Clear Calc Drug Dose 41.9 ml/min 46.4 ml/min Estimated GFR () 86.1 91.2 Estimated GFR (Non- 74.3 78.7 BUN/Creatinine Ratio 17.3 17.7 Random Glucose 112 mg/dl 95 mg/dl Calcium Level 8.8 mg/dl 8.6 mg/dl Total Bilirubin 0.3 mg/dl Direct Bilirubin < 0.1 mg/dl Aspartate Amino Transf (AST/SGOT) 25 U/L Alanine Aminotransferase (ALT/SGPT) 29 U/L Alkaline Phosphatase 85 U/L Total Protein 7.2 gm/dl Albumin 3.3 gm/dl Lipase 316 U/L Bedside Troponin I < 0.030 ng/ml [id number] Natriuretic Peptide 580 pg/ml Giant Platelets 2+ Tear Drop Cells 1+ Test 10/22/16 08:36 Assessment & Plan Assessment & Plan: Assessment: Mrs Castro is a 89 y/o female with sjogren's with significant sicca complaints who presented to the [facility] with worsening AMOR and cough for 3 weeks and noted to have thrombocytopenia. top differential would be immune mediated thrombocytopenia (ITP) vs viral syndrome. Currently platelet count is stable and she is hemodynamically stable with no evidence of bleeding. she is not anemic and CMP looks good. Hematology consult is pending. I would favor more viral syndrome then sjogren's/autoimmune syndrome in this setting and previous normal blood counts in recent past. I did contact Dr Ortega (hematology) - He will be seeing her later today and he was in agreement. likely observe for now and only use steroids if needed. I also contact primary service to discuss as well. Her sicca has been difficult to manage and I am assuming she did not tolerate pilocarpine in the past given her reported medication side effects. I discussed continued conservative measures for her dry mouth and eyes. her cough may be from the chronic dryness more than any true lung disease. will not to be followed as an outpatient as well. Plan: 1. await hematology input and lab studies 2. consider prednisone if needed 3. case discussed with Primary and hematology 4. continue eye drops, biotene sprays, water for dryness, also cough suppressant 5. I will contact Dr Amina Renteria to get follow up this week 6. Thank you for the consult and involving me in this patient's care
--- NOTE | 2016-10-22 12:27 | Oncology Consultation ---
Oncology/Heme Consultation Date of Consultation: Oct 22, 2016. Attending Physician: Alonso Melara M.D. Reason for Consultation: Thrombocytopenia and mild neutropenia History of Present Illness Ms. Castro was seen today. In the room were relatives including her son. She was brought to the hospital yesterday because of increasing shortness of breath apparently. With that evaluation she was found to be newly thrombocytopenic. She denies any fever or chills. She denies any weight loss. She states she has had a cough but has been productive primarily of clear phlegm. She denies any night sweats or fevers again. She denies any unusual bone pain. She she denies any change in bowel habits. She denies any chest pain or headaches. She states she has a history of Sjogren's syndrome. She also has a distant history 8 years ago colon carcinoma status post resection. History of Sjogren' s syndrome dates back at least 2 years. From what I could tell her therapy has been purely symptomatic oriented. Past Medical/Surgical History Medical Problems: (1) Acute bronchitis Status: Acute (2) Bronchitis Status: Acute (3) Cough Status: Acute (4) CVA (cerebral vascular accident) Status: Acute (5) Dizziness Status: Acute (6) Foreign body in left ear Status: Acute (7) SOB (shortness of breath) Status: Acute (8) Thrombocytopenia Status: Acute Family History Asthma Cancer Heart disease Lung disease Social History Negative for significant smoking or alcohol usage Smoking Status: Never Smoker Smokeless Tobacco Use: No Alcohol Use: none Drug Use: none Marital Status: Housing Status: lives with family Occupation Status: retired Allergies Coded Allergies: Iodinated Contrast Media (Verified Allergy, Unknown, itching, 08/26/16) Oxycodone (Verified Adverse Reaction, Unknown, NAUSEA, VOMITING, PT. STATES SHE GOES CRAZY, 08/26/16) Home Medications Scheduled Amoxicillin & Pot Clavulanate (Augmentin 875-125 mg), 1 TAB PO BID Aspirin (Aspirin Ec), 81 MG PO DAILY Cholecalciferol (Vitamin D3), 5 TAB PO DAILY Losartan Potassium (Losartan Potassium), 25 MG PO DAILY Scheduled PRN Albuterol Sulfate (Proventil Hfa), 2 PUFF INJ QID PRN for SOB/Wheezing Current Inpatient Medications Current Inpatient Medications Medications (Trade) Dose Ordered Sig/Sylvia Route Start Time Stop Time Status Last Admin Dose Admin Acetaminophen (Tylenol Tab) 650 mg Q4H PRN PO 10/22/16 01:15 11/21/16 01:14 Al Hydrox/Mg Hydrox/Simethicone (Maalox Max Susp) 15 ml Q4H PRN PO 10/22/16 01:15 11/21/16 01:14 Magnesium Hydroxide (Milk Of Magnesia Susp) 30 ml Q6H PRN PO 10/22/16 01:15 11/21/16 01:14 Polyethylene (Miralax Powder Packet) 17 gm DAILY PRN PO 10/22/16 01:15 11/21/16 01:14 Ondansetron HCl (Zofran Inj) 4 mg Q6H PRN IV 10/22/16 01:15 11/21/16 01:14 Albuterol (Ventolin Hfa Inhaler) 2 puffs QID PRN INH 10/22/16 01:30 11/21/16 01:29 Losartan Potassium (coZAAR TAB) 25 mg DAILY PO 10/22/16 09:00 11/21/16 08:59 10/22/16 07:53 25 MG Cholecalciferol (Vitamin D Tab) 5,000 inter.unit DAILY PO 10/22/16 09:00 11/21/16 08:59 10/22/16 07:53 5,000 INTER.UNIT Albuterol/ Ipratropium (Duoneb) 3 ml Q4R PRN INH 10/22/16 01:30 11/21/16 01:29 Artificial Tears (Artificial Tears) 2 drops Q15M PRN OP 10/22/16 01:30 11/21/16 01:29 Guaifenesin (Robitussin Sugar Free Syrup) 200 mg Q6H PRN PO 10/22/16 02:00 11/21/16 01:59 10/22/16 10:36 200 MG Benzonatate (Tessalon Perles Cap) 100 mg TID PO 10/22/16 09:00 11/21/16 08:59 Review of Systems Constitutional: Negative for weight loss, night sweats, or fever Eyes: Negative for event change of vision ENT: Negative for epistaxis, nasal discharge, sore throat, or deafness Cardiovascular: Negative for chest pain, palpitations, dizziness, diaphoresis Respiratory: Negative for hemoptysis, or purulent cough Gastrointestinal: Negative for diarrhea, hematemesis, melena, nausea, vomiting , or dyspepsia Integumentary (skin): Negative for rash or jaundice discoloration Genitourinary: Negative for urinary frequency, hematuria, or dysuria Neurological: Negative for weakness, seizure activity, headache, or dizziness Lymphatic/Hematologic: Negative for petechiae, bleeding or new adenopathy Musculoskeletal: Negative for new joint or back pain Allergic/Immunologic: Negative for unusual rash or pruritis. Physical Exam Date Time Temp Pulse Resp B/P (MAP) Pulse Ox O2 Delivery O2 Flow Rate FiO2 10/22/16 08:00 Room Air 10/22/16 07:58 36.5 89 18 132/76 (94) 96 Room Air 10/22/16 04:00 92 Room Air 10/22/16 02:06 37.0 84 16 131/74 92 Room Air 10/22/16 01:25 81 20 151/84 97 10/21/16 23:46 85 22 10/21/16 23:16 85 23 159/82 98 Room Air 10/21/16 23:02 88 10/21/16 22:46 92 14 10/21/16 22:16 94 22 10/21/16 21:46 83 24 95 Room Air 10/21/16 21:16 84 20 10/21/16 21:11 165/91 10/21/16 20:46 85 22 96 Room Air 10/21/16 20:16 94 21 98 Room Air 10/21/16 19:46 96 20 95 Room Air 10/21/16 19:37 94 10/21/16 18:57 37.4 96 18 169/93 95 Room Air 10/21/16 18:57 95 Room Air Constitutional: vitals are stable. Performance status by history is quite good. Eyes: Eyes are MICHELINE EOMI without conjuctival erythema or icterus. ENT: External examination was negative for masses. She does have what could be herpetic sores around her mouth. Is difficult to be certain she is edentulous. She states she has trouble eating because of the dry mouth Neck: Negative for masses or palpable thyromegaly Respiratory: Lung sounds were generally clear bilaterally Cardiovascular: Heart was RRR without significant murmur, gallops aoe rubs Gastrointestinal: No palpable hepatic or splenomegaly. The abdomen was soft with normal bowel sounds. Lymphatic system: there was no palpable peripheral lymphadenopathy Musculoskeletal System: The musculoskeletal system seemed concordant with age. Skin: The skin was negative for jaundice. Neurologic exam: The exam was negative for any focal findings. Deep tendon reflexes were equal and symmetrical. Psychiatric exam: Was essentially negative with normal mood and effect. Breast exam: Done with patient permission was negative for palpable masses or corollary supraclavicular or axillary palpable adenopathy. Extremities: Negative for significant edema or tenderness Laboratory Results Last 24 Hours Test 10/21/16 19:18 10/21/16 19:54 10/21/16 22:49 10/22/16 07:12 White Blood Count 3.91 K/uL 3.99 K/uL 3.57 K/uL Red Blood Count 4.50 M/uL 4.60 M/uL 4.39 M/uL Hemoglobin 13.3 g/dL 13.2 g/dL 12.6 g/dL Hematocrit 39.2 % 39.9 % 38.3 % Mean Corpuscular Volume 87.1 fL 86.7 fL 87.2 fL Mean Corpuscular Hemoglobin 29.6 pg 28.7 pg 28.7 pg Mean Corpuscular Hemoglobin Concent 33.9 g/dl 33.1 g/dl 32.9 g/dl Platelet Count 41 K/uL 42 K/uL 38 K/uL Mean Platelet Volume 10.6 fL 10.0 fL 10.6 fL Neutrophils (%) (Auto) 56.2 % 55.3 % 53.5 % Lymphocytes (%) (Auto) 13.0 % 15.8 % 30.8 % Monocytes (%) (Auto) 26.1 % 24.6 % 9.8 % Eosinophils (%) (Auto) 2.6 % 2.5 % 3.6 % Basophils (%) (Auto) 1.3 % 1.3 % 2.0 % Neutrophils # (Auto) 2.20 K/uL 2.21 K/uL 1.91 K/uL Lymphocytes # (Auto) 0.51 K/uL 0.63 K/uL 1.10 K/uL Monocytes # (Auto) 1.02 K/uL 0.98 K/uL 0.35 K/uL Eosinophils # (Auto) 0.10 K/uL 0.10 K/uL 0.13 K/uL Basophils # (Auto) 0.05 K/uL 0.05 K/uL 0.07 K/uL RDW Standard Deviation 46.3 fL 45.5 fL 46.0 fL RDW Coefficient of Variation 14.4 % 14.5 % 14.4 % Immature Granulocyte % (Auto) 0.8 % 0.5 % 0.3 % Immature Granulocyte # (Auto) 0.03 K/uL 0.02 K/uL 0.01 K/uL Platelet Estimate DECREASED Sodium Level 138 mmol/L 141 mmol/L Potassium Level 3.9 mmol/L 3.8 mmol/L Chloride Level 106 mmol/L 108 mmol/L Carbon Dioxide Level 27 mmol/L 28 mmol/L Anion Gap 5.0 mmol/L 5.0 mmol/L Blood Urea Nitrogen 12 mg/dl 12 mg/dl Creatinine 0.72 mg/dl 0.65 mg/dl Est Creatinine Clear Calc Drug Dose 41.9 ml/min 46.4 ml/min Estimated GFR () 86.1 91.2 Estimated GFR (Non- 74.3 78.7 BUN/Creatinine Ratio 17.3 17.7 Random Glucose 112 mg/dl 95 mg/dl Calcium Level 8.8 mg/dl 8.6 mg/dl Total Bilirubin 0.3 mg/dl Direct Bilirubin < 0.1 mg/dl Aspartate Amino Transf (AST/SGOT) 25 U/L Alanine Aminotransferase (ALT/SGPT) 29 U/L Alkaline Phosphatase 85 U/L Total Protein 7.2 gm/dl Albumin 3.3 gm/dl Lipase 316 U/L Bedside Troponin I < 0.030 ng/ml [id number]-Type Natriuretic Peptide 580 pg/ml Giant Platelets 2+ Tear Drop Cells 1+ Test 10/22/16 08:36 Assessment & Plan Mild thrombocytopenia which is new. Earlier this year his CBC was quite stable. Review of the peripheral smear is really unremarkable. Overall platelet number is low. White cell morphology appears essentially normal. The Red cell population also appears quite banal. CT scan of the abdomen is really unremarkable however there is a comment of some nodularity seen in the lung but is felt to be infectious in origin. I suspect that the cytopenias that she currently has are most likely postinfectious oriented. I suspect a viral type problem could be the basis of this. She tells me however that her shortness of breath has been going on for a few months. I have to wonder whether the nodules for instance in the lung that are felt to be postinfectious could also be viral oriented such as herpetic ?. A comment from infectious disease might be warranted. No Hematologic intervention is needed from our standpoint at this time. While she is in the hospital I would suggest daily CBCs. We will ask for a CBC weekly for now and re-gather in our clinic as an outpatient in the next few weeks. Our clinic will help arrange Alternatively the cytopenias could be autoimmune oriented but again she has had an autoimmune ailment for quite some time without associated cytopenias.
[2016-10-22 14:54] LABS: COMPLETE YES
[2016-10-22] MEDS ORDERED: COUGH DROP (SUGAR FREE) LOZ 24 LOZ/1 BOX PO PRN (15:30)
[2016-10-22 15:50] VITALS: BP 101/69; PULSE 81; TEMP 36.7; O2SAT 93
[2016-10-22] MEDS ORDERED: GUAIFENESIN SUGAR FREE 200 MG/10 ML UDC PO PRN (16:00)
[2016-10-22 20:00] VITALS: O2SAT 92
[2016-10-22 23:54] VITALS: BP 135/84; PULSE 84; TEMP 37; O2SAT 95
[2016-10-23 07:01] LABS: HEMATOCRIT 40.8 % (37-47); MEAN CELL VOLUME 87.2 fL (80-100); MEAN CORPUSCULAR HEMOGLOBIN 29.1 pg (25-34); MEAN CORPUSCULAR HGB CONC 33.3 g/dl (32-36); RED BLOOD COUNT 4.68 M/uL (4.2-5.4); WHITE BLOOD COUNT 3.56 K/uL (4.8-10.8)
[2016-10-23 07:41] LABS: MEAN PLATELET VOLUME 9.5 fL (7.4-10.4); PLATELET COUNT 35 K/uL (130-400)
[2016-10-23 07:45] VITALS: BP 137/83; PULSE 77; TEMP 36.8; O2SAT 91
[2016-10-23] MEDS: LOSARTAN POTASSIUM 25 MG TAB PO SCH (07:50)
[2016-10-23] MEDS: CHOLECALCIFEROL 1000 INTER.UNIT TAB PO SCH (07:50)
[2016-10-23 07:52] LABS: BASO % 1.7 %; BASO ABS # 0.06 K/uL (0-0.2); COMPLETE YES; EOS % 4.8 %; IG% 0.3 %; LYMPH % 15.4 %; LYMPH ABS # 0.55 K/uL (1.2-3.4); MONO % 22.2 %; NEUT % 55.6 %
[2016-10-23] MEDS: BENZONATATE 100MG CAP PO SCH ×2 (07:54→14:00)
--- NOTE | 2016-10-23 08:16 | Family Medicine Progress Note ---
Progress Note Date of Service Oct 23, 2016. Assessment and Plan 89F admitted for acute thrombocytopenia in the setting of acute bronchitis Acute thrombocytopenia - Platelets found to be 42 in ED, normal is 200-300s. Today 35. - Rheum consult: consider prednisone if needed. For Sjogrens: continue eye drops , biotene sprays, water for dryness, also cough suppressant. Will contact Dr Amina Renteria to get f/u this wk - Heme onc consult: peripheral smear unremarkable, suspect that the cytopenias that she currently has are postinfectious. No Hematologic intervention is needed. - Serial CBCs Sjogren syndrome, h/o x 2 years - apparently controlled symptomatically - place on normal saline with KCl 20 mEq at 100 mils per hour. - Artificial tears 2 drops in both eyes every 2 hours. - Biotene spray every 2 hours while awake oral mucosa. - Polysporin ointment applied to corners of mouth at bedtime. Acute bronchitis - CXR shows no PNA, no new changes, stable cardiomegaly - 96 on RA - Duonebs q4 PRN - pt refuses. - Pt does not tolerate Tessalon pearls. Rubitussin guiafenasin incr to q4. - CT scan - with ground glass and nodular density in lung base. - Interval development of a few subcentimeter nodules within the left lung base. Favor an infectious process. - For Solitary nodule size: 6-8 mm recommend: * Low risk patients: follow-up at 6-12 months, then consider further follow -up at 18-24 months * high risk patients: initial follow-up CT at 6-12 months and then at 18- 24 months if no change Hypertension - cont Losartan DVT prophylaxis - SCD - Teds - Hold heparin or LMWH due to low platelets CODE STATUS - Level I full code Disposition - MedSurg - OT and PT evaluation and treat; the patient lives independently at home, which will be the goals at discharge Continued [facility] stay due to: multiple IV medications needed, home environment unsafe for pt Resident Tracking Resident Involvement: Resident Care Provided Care Provided: Adult Hospital Medicine
--- NOTE | 2016-10-23 09:43 | Hematology/Oncology Prog Note ---
Hematology/Onc Progress Note Date of Service Oct 23, 2016. Diagnoses thrombocytopenia and leukopenia Medications Medications Administered Medications (Trade) Dose Ordered Sig/Sylvia Route Start Time Stop Time Status Last Admin Dose Admin Albuterol/ Ipratropium (Duoneb) 3 ml NOW STAT INH 10/21/16 19:18 10/21/16 19:20 DC 10/21/16 19:18 3 ML Losartan Potassium (coZAAR TAB) 25 mg DAILY PO 10/22/16 09:00 11/21/16 08:59 10/23/16 07:50 25 MG Cholecalciferol (Vitamin D Tab) 5,000 inter.unit DAILY PO 10/22/16 09:00 11/21/16 08:59 10/23/16 07:50 5,000 INTER.UNIT Guaifenesin (Robitussin Sugar Free Syrup) 200 mg Q6H PRN PO 10/22/16 02:00 10/22/16 16:00 DC 10/22/16 15:55 200 MG Guaifenesin (Robitussin Sugar Free Syrup) 200 mg Q4 PRN PO 10/22/16 16:00 11/21/16 01:59 10/23/16 07:54 200 MG Subjective She really offers no new complaints. Afebrile. Review of Systems: Constitutional: Negative for night sweats, or fever Eyes: Negative for event change of vision ENT: Negative for epistaxis, nasal discharge, sore throat, or deafness Cardiovascular: Negative for chest pain, palpitations, dizziness, diaphoresis Respiratory: Negative for new shortness of breath,hemoptysis, or purulent cough Gastrointestinal: Negative for diarrhea, hematemesis, melena, nausea, vomiting , or dyspepsia Integumentary (skin): Negative for rash or jaundice discoloration Genitourinary: Negative for urinary frequency, hematuria, or dysuria Neurological: Negative for weakness, seizure activity, headache, or dizziness Lymphatic/Hematologic: Negative for petechiae, bleeding or new adenopathy Musculoskeletal: Negative for new joint or back pain Allergic/Immunologic: Negative for unusual rash or pruritis. Vital Signs Vital Signs Past 12 Hours Date Time Temp Pulse Resp B/P (MAP) Pulse Ox O2 Delivery O2 Flow Rate FiO2 10/23/16 07:45 36.8 77 18 137/83 (101) 91 Room Air 10/23/16 00:00 Room Air 8/12/17 23:54 37.0 84 20 135/84 (101) 95 Room Air Physical Exam Constitutional: vitals are stable. Eyes: Eyes are MICHELINE EOMI without conjuctival erythema or icterus. ENT: External examination was negative for masses. Neck: Negative for masses or palpable thyromegaly Respiratory: Lung sounds were generally clear bilaterally Cardiovascular: Heart was RRR without significant murmur, gallops aoe rubs Gastrointestinal: No palpable hepatic or splenomegaly. The abdomen was soft with normal bowel sounds. Lymphatic system: there was no palpable peripheral lymphadenopathy Musculoskeletal System: The musculoskeletal system seemed concordant with age. Skin: The skin was negative for jaundice. She does have what appears to be an old vesicle at the corner of her mouth on the right as well as a second one on the right side above the TMJ Neurologic exam: The exam was negative for any focal findings. Deep tendon reflexes were equal and symmetrical. Psychiatric exam: Was essentially negative with normal mood and effect. Breast exam: Done yesterday was negative Extremities: Negative for edema erythema Laboratory Last 24 Hours Test 10/22/16 12:43 10/23/16 06:43 10/23/16 09:21 Lactate Dehydrogenase 232 U/L White Blood Count 3.56 K/uL Red Blood Count 4.68 M/uL Hemoglobin 13.6 g/dL Hematocrit 40.8 % Mean Corpuscular Volume 87.2 fL Mean Corpuscular Hemoglobin 29.1 pg Mean Corpuscular Hemoglobin Concent 33.3 g/dl Platelet Count 35 K/uL Mean Platelet Volume 9.5 fL Neutrophils (%) (Auto) 55.6 % Lymphocytes (%) (Auto) 15.4 % Monocytes (%) (Auto) 22.2 % Eosinophils (%) (Auto) 4.8 % Basophils (%) (Auto) 1.7 % Neutrophils # (Auto) 1.98 K/uL Lymphocytes # (Auto) 0.55 K/uL Monocytes # (Auto) 0.79 K/uL Eosinophils # (Auto) 0.17 K/uL Basophils # (Auto) 0.06 K/uL RDW Standard Deviation 46.2 fL RDW Coefficient of Variation 14.5 % Immature Granulocyte % (Auto) 0.3 % Immature Granulocyte # (Auto) 0.01 K/uL Assessment & Plan CBC remains virtually the same. Platelet count today is 35,000. There has been no overt bleeding.. I suspect this is either autoimmune in origin or secondary to a viral infection. With what appears to be now a scarred vesicle on the right side of the face as well as at the corner of the mouth on the right -is possible that she is recovering from shingles. We will make arrangements to follow in clinic. No hematologic intervention is necessary. She denies any facial pain.
[2016-10-23 10:42] VITALS: BP 126/75; PULSE 96; O2SAT 94
[2016-10-23 14:55] VITALS: BP 133/80; PULSE 92; TEMP 36.7; O2SAT 93
--- NOTE | 2016-10-23 15:26 | Discharge Instructions ---
Discharge Instructions Date of Service Oct 23, 2016. Admission Reason for Admission: Thrombocytopenia Discharge Discharge Diagnosis / Problem: Thrombocytopenia Discharge Goals Goal(s): Learn about illness Activity Recommendations Activity Limitations: as noted below Lifting Limitations: gradually increase as tolerated . Instructions / Follow-Up Instructions / Follow-Up You were seen here for shortness of breath and cough, and were found to have low Platelets. Your platelets were found to be at 38,000 upon your day of discharge. In past admissions, your platelets have been as high as 200,000 and 300,000. We monitored your vital signs and also helped your cough. We recommend that you follow up with your Primary Care Provider within 1 week of discharge. We also recommend that you see a instructor tap dancing to assess your lung function. We also recommend that you follow up with Dr. Ortega regarding your low platelets. Current Hospital Diet Patient's current hospital diet: Regular Diet Discharge Diet Recommended Diet: Regular Diet Pending Studies Studies pending at discharge: no Medical Emergencies . Who to Call and When: Medical Emergencies: If at any time you feel your situation is an emergency, please call 911 immediately. . Non-Emergent Contact Non-Emergency issues call your: Primary Care Provider . . "Provider Documentation" section prepared by Kaila Evans. . VTE Core Measure Inpt VTE Proph given/why not?: SCD's, Contraindicated (low platelets)
--- NOTE | 2016-10-23 15:27 | Discharge Summary ---
Discharge Summary Date of Service Oct 23, 2016. (Kaila Evans M.D.) Discharge Summary Admission Date: Oct 22, 2016 at 01:05 Discharge Date: Oct 23, 2016 Discharge Disposition: Home Principal Diagnosis: Thrombocytopenia Immunizations: Have You Had Influenza Vaccine: Yes History of Tetanus Vaccine?: No History of Pneumococcal: Yes History of Hepatitis B Vaccine: No (Kaila Evans M.D.) Medication Reconciliation Continued Medications: Albuterol Sulfate (Proventil Hfa) 108 Mcg/Act Aer 2 PUFF INJ QID PRN for SOB/Wheezing Cholecalciferol (Vitamin D3) 1,000 Unit Tab 5 TAB PO DAILY for 90 Days, #450 TAB 3 Refills Losartan Potassium (Losartan Potassium) 25 Mg Tab 25 MG PO DAILY Discontinued Medications: Amoxicillin & Pot Clavulanate (Augmentin 875-125 mg) 1 Tab Tab 1 TAB PO BID, #14 TAB Aspirin (Aspirin Ec) 81 Mg Tab 81 MG PO DAILY Discharge Exam Review of Systems: Constitutional: No fever, No chills, No sweats Respiratory: + cough, No sputum, No wheezing, No shortness of breath Cardiovascular: No chest pain, No orthopnea, No edema Abdomen: No pain, No nausea, No vomiting Genitourinary - Female: No dysuria Psychiatric: No depression symptoms Hematologic / Lymphatic: No abnormal bleeding/bruising, No swollen lymph nodes Physical Exam: General Appearance: WD/WN, no apparent distress Eyes: normal inspection, PERRL, EOMI Respiratory/Chest: chest non-tender, lungs clear, normal breath sounds, no respiratory distress Cardiovascular: regular rate, rhythm, no edema, no JVD, normal peripheral pulses Abdomen / GI: normal bowel sounds, non tender, soft Extremities: normal inspection, normal capillary refill, no pedal edema Neurologic/Psychiatric: alert, normal mood/affect, oriented x 3 Skin: normal color, warm/dry, no rash, + pertinent finding (periorbital erythema and dryness. 2 Vesicular lesions on RT cheek 3 mm. Negative for petechiae. ) (Kaila Evans M.D.) Review of Systems: Constitutional: No fever Respiratory: + cough, No shortness of breath Cardiovascular: No chest pain Physical Exam: General Appearance: no apparent distress Respiratory/Chest: lungs clear, no respiratory distress Cardiovascular: regular rate, rhythm Abdomen / GI: normal bowel sounds, non tender, soft Neurologic/Psychiatric: alert, oriented x 3 Skin: warm/dry (Jesica De La Cruz M.D.) Hospital Course 89 year old female admitted for acute thrombocytopenia in the setting of acute bronchitis. Acute thrombocytopenia - Platelets found to be 42 in ED, normal is 200-300s. Today on day of DC, PLT are 35. - Given pt's auto-immune background, rheum consulted. Recommended to consider prednisone if needed. Will contact Dr Amina Renteria to get f/u this wk - Heme onc consult: peripheral smear found to be unremarkable, suspect that the cytopenias that she currently has are postinfectious. No Hematologic intervention deemed necessary. - Serial CBCs were ordered during stay, and f/u CBC script given for Monday post DC. Sjogren syndrome, h/o x 2 years - apparently controlled symptomatically. Pt placed on normal saline with KCl 20 mEq at 100 mils per hour. - Artificial tears 2 drops in both eyes every 2 hours. - Biotene spray every 2 hours while awake oral mucosa. - Polysporin ointment applied to corners of mouth at bedtime. Acute bronchitis - CXR shows no PNA, no new changes, stable cardiomegaly - 96 on RA - Pt refused Duonebs q4 PRN. - Pt did not tolerate swallowing Tessalon pearls. Rubitussin guiafenasin given q6. - CT scan - with ground glass and nodular density in lung base. - Interval development of a few subcentimeter nodules within the left lung base. Favor an infectious process. - For Solitary nodule size: 6-8 mm recommend: * Low risk patients: follow-up at 6-12 months, then consider further follow -up at 18-24 months * high risk patients: initial follow-up CT at 6-12 months and then at 18- 24 months if no change Hypertension - continue Losartan DVT prophylaxis - SCD - Teds - Held heparin due to low platelets. CODE STATUS - Level I full code Recommend f/u with Pulmonology for solitary nodules found on CT scan within 6- 12 months. Ordered repeat CBC to be done outpatient on Monday. Total Time Spent: Greater than 30 minutes This includes examination of the patient, discharge planning, medication reconciliation, and communication with other providers. (Kaila Evans M.D.) Resident Physician Supervision Note: I was present with Dr. Evans in bedside. I verified the yanez history and physical, reviewed labs and image studies, discussed the case with the resident and agree with the findings and care plan. Total Time Spent: Greater than 30 minutes (35) (Jesica De La Cruz M.D.) Discharge Instructions Please refer to the electronic Patient Visit Report (Discharge Instructions) for additional information. (Kaila Evans M.D.) Additional Copies To Wolfgang Oropeza MD Resident Tracking Resident Involvement: Resident Care Provided Care Provided: [facility] (Kaila Evans M.D.)
[2016-10-23 15:30] VITALS: BP 133/80; PULSE 92; TEMP 36.7; O2SAT 93
[2016-10-26 13:36] LABS: PLT AB IND GP IA/IIA Negative (Negative); PLT AB INDIRECT GP IB/IX Negative (Negative); PLT AB INDIRECT GP IIB/IIIA Negative (Negative); PLT AB INDIRECT GP IV Negative (Negative); PLT AB INDIRECT HLA CLASS I Negative (Negative)
== END 2016-10-23 15:50 | disposition home or self-care (01) ==
LOC: C.EDB 18:46 → C.MS2W 10-22 01:05 → ENRESERV 10-22 01:19
PROVIDERS: ADMIT Student in an Organized Health Care Education/Training Program; ATTEND Family Medicine
DX: D69.3 Immune thrombocytopenic purpura (principal); J20.9 Acute bronchitis, unspecified; M35.00 Sjogren syndrome, unspecified; I10 Essential (primary) hypertension; Z85.038 Personal history of other malignant neoplasm of large intestine; Z90.49 Acquired absence of other specified parts of digestive tract; Z82.49 Family history of ischemic heart disease and other diseases of the circulatory system; Z83.6 Family history of other diseases of the respiratory system

== ENCOUNTER → 2016-10-25 | Outpatient (CLI) | payer MEDICARE, OTHER ==
[~2016-10-25] MED LIST changes: +ALBUAER INJ; -ASPI81TA28 PO; +CHOL1000 PO; +CZR25 PO
[2016-10-25 17:39] LABS: HEMATOCRIT 38.1 % (37-47); MEAN CELL VOLUME 87.8 fL (80-100); MEAN CORPUSCULAR HEMOGLOBIN 29.7 pg (25-34); MEAN CORPUSCULAR HGB CONC 33.9 g/dl (32-36); RED BLOOD COUNT 4.34 M/uL (4.2-5.4); WHITE BLOOD COUNT 4.87 K/uL (4.8-10.8)
[2016-10-25 17:43] LABS: MEAN PLATELET VOLUME 10.8 fL (7.4-10.4); PLATELET COUNT 34 K/uL (130-400)
--- NOTE | 2016-11-18 12:40 | CODING QUERY NO DIAGNOSIS ---
TREATMENT RENDERED WITHOUT A DIAGNOSIS To promote full compliance with coding requirements relating to patient care, physician participation is requested in all cases of clinical programmer uncertainty. Please assist us with providing a diagnosis/symptom for the test(s) below: A diagnosis/symptom was not documented on your Order. A valid diagnosis/symptom is required to bill all insurances. Please remember that we are unable to code a diagnosis of rule out, probable, possible, questionable, or suspected. Tests that require a diagnosis: DOS: 10/25/16 * CBC W/O DIFF DIAGNOSIS: Provider Signature: Date: Thank you Elana Glaser [employer] Information Management Once completed, please kindly fax back to [phone] For questions please call [phone]
== END | disposition home or self-care (01) ==
LOC: C.LABPVFM 13:23
PROVIDERS: ATTEND Family Medicine
DX: D69.6 Thrombocytopenia, unspecified (principal)

== ENCOUNTER → 2016-10-28 | Outpatient (CLI) | payer MEDICARE | END | disposition home or self-care (01) | LOC: C.LABPVFM 13:07 | PROVIDERS: ATTEND Family Medicine | DX: R05 Cough (principal); R06.02 Shortness of breath ==

== ENCOUNTER → 2016-11-01 | Outpatient (CLI) | payer MEDICARE ==
[2016-11-01 13:09] LABS: HEMATOCRIT 40.9 % (37-47); MEAN CELL VOLUME 88.5 fL (80-100); MEAN CORPUSCULAR HGB CONC 32.8 g/dl (32-36); MEAN PLATELET VOLUME 12.2 fL (7.4-10.4); PLATELET COUNT 21 K/uL (130-400); RED BLOOD COUNT 4.62 M/uL (4.2-5.4); WHITE BLOOD COUNT 4.86 K/uL (4.8-10.8)
[2016-11-01 13:10] LABS: BASO % 0.8 %; BASO ABS # 0.04 K/uL (0-0.2); COMPLETE YES; IG% 0.2 %; LYMPH % 11.1 %; LYMPH ABS # 0.54 K/uL (1.2-3.4); NEUT % 64.9 %; PLT ESTIMATE SIGNIFIC DECREASED
== END ==
LOC: C.LABPVFM 10:26
PROVIDERS: ATTEND Family Medicine
DX: R05 Cough (principal); R06.02 Shortness of breath; D69.6 Thrombocytopenia, unspecified

== ENCOUNTER → 2016-11-16 | Outpatient (CLI) | payer MEDICARE, OTHER ==
[2016-11-16 13:18] LABS: PARTIAL THROMBOPLASTIN RATIO 0.9; PROTHROMBIN TIME (PATIENT) 10.5 SECONDS (9.0-12.0)
[2016-11-16 14:01] LABS: ALT/SGPT 23 U/L (12-78); AST/SGOT 17 U/L (15-37); BLOOD UREA NITROGEN 19 mg/dl (7-18); BUN/CREATININE RATIO 21.8 (10-20); CALCIUM 8.5 mg/dl (8.5-10.1); CARBON DIOXIDE 26 mmol/L (21-32); CHLORIDE 101 mmol/L (98-107); CREATININE 0.87 mg/dl (0.60-1.20); GLUCOSE 104 mg/dl (70-99); POTASSIUM 3.7 mmol/L (3.5-5.1); SODIUM 135 mmol/L (136-145)
[2016-11-16 14:04] LABS: ALB/GLOB RATIO 0.9 (0.9-2); ALKALINE PHOSPHATASE 67 U/L (45-117)
== END | disposition home or self-care (01) ==
LOC: C.LABPVFM 06:21
PROVIDERS: ATTEND Internal Medicine Pulmonary Disease
DX: I10 Essential (primary) hypertension (principal); R05 Cough; R06.02 Shortness of breath; R91.1 Solitary pulmonary nodule

== ENCOUNTER → 2016-11-30 | Outpatient (CLI) | payer MEDICARE ==
--- NOTE | 2016-11-30 12:49 | DIAGNOSTIC IMAGING REPORT ---
PET/CT SKULL-THIGH CLINICAL HISTORY: 89 years-old Female presenting with PULMONARY NODULE. TECHNIQUE: PET/CT was performed from the base of the skull through the proximal thighs following the intravenous administration of 15.257 mCi of F18-FDG. Blood glucose level 78 mg/dL. The injection was performed at 10:10 AM and imaging began at 11:[address] was performed for attenuation correction purposes and anatomic localization. COMPARISON: CT of the abdomen and pelvis from 10/22/2016. CT DOSE (mGy.cm): The estimated cumulative dose is 969.17. FINDINGS: Head and neck: There is no FDG-avid disease or significant lymphadenopathy in the imaged portions of the head and the neck. Polypoid mucosal thickening in the left maxillary sinus. Chest: Subcentimeter subcarinal lymph node demonstrates mild FDG avidity (max SUV 2.7). No pathologically enlarged axillary lymph nodes by size criteria. Atherosclerosis of aortic arch. Enlargement of the main pulmonary artery measuring 3.9 cm in transverse dimension, possibly indicating pulmonary hypertension. FDG avidity of the free wall of the right ventricle, which is a marker of poor prognosis in the setting of pulmonary arterial hypertension. Mild multichamber enlargement of the heart. Aortic valve calcification. Trace pericardial effusion. No pleural effusion. Multiple pulmonary nodules are not FDG avid but likely below the resolution of PET. These are numerous below, many do not strictly correlate with the nodules noted on prior exam, although evaluation is limited due to nondiagnostic CT: -Solid 5 mm pulmonary nodule in the right upper lobe (series 2 image 77). -Solid 4 mm nodule at the left lung base (series 2 image 94). -Subsolid 3 mm nodule in the left lower lobe in the paramediastinal region at the previous site of one of the solid nodules. -Multiple additional punctate nodules in the left lower lobe. -Solid 4 mm nodule noted in the superior segment of the left lower lobe. -Subsolid 3 mm nodule in the lingula at the site of prior nodule. Abdomen and pelvis: Photopenic hypodensity in the left hepatic lobe likely hepatic cyst or hamartoma. Postsurgical changes of the bowel with associated FDG avidity (max SUV 3.8). Otherwise, physiologic distribution of radiotracer noted in the genitourinary tracts. No significant lymphadenopathy, and no FDG-avid disease. Musculoskeletal: Total left hip arthroplasty. Degenerative changes of the spine, pubic symphysis, and glenohumeral joints with associated minimal FDG avidity. No FDG avid or destructive osseous lesion. Granuloma noted in the right buttocks. IMPRESSION: 1. Multiple solid pulmonary nodules, many in the left lower lobe. These are not grossly FDG avid but are below the resolution of PET. Dedicated anatomic imaging with chest CT is recommended. Allowing for limited resolution and nondiagnostic CT image quality, these nodules appear to have evolved since the prior CT of the abdomen and pelvis, some decreased in size or resolved though some new nodules noted. This could suggest an infectious or inflammatory etiology. 2. Mild FDG avidity of a subcarinal lymph node, which may be reactive. 3. Postsurgical changes of the bowel with associated FDG avidity. This could represent expected postsurgical change, although an underlying abnormality is difficult to detect without intravenous or oral contrast. 4. Enlarged main pulmonary artery suggestive of pulmonary artery hypertension. FDG avidity of the free wall the right ventricle is a poor prognostic marker of pulmonary arterial hypertension. Electronically signed by: Manas Villeda M.D. 11/30/2016 12:48 PM Dictated Date/Time: 11/30/2016 12:28 PM
== END | disposition home or self-care (01) ==
LOC: C.PET 09:37
PROVIDERS: ATTEND Internal Medicine Pulmonary Disease
DX: R05 Cough (principal); R91.1 Solitary pulmonary nodule